=== PATIENT | female | born 1945 | race Caucasian/White ===

== ENCOUNTER → 2019-11-12 | Outpatient (REF) | payer MEDICARE ==
[2019-11-12 20:27] LABS: BASO # 0.1 10^3/uL (0.0-0.2); BASO % 0.6 % (0.0-1.0); EOS # 0.3 10^3/uL (0.0-0.5); EOS % 3.8 % (0.0-3.0); HEMATOCRIT 40.8 % (36.0-47.0); HEMOGLOBIN 13.1 g/dl (12.0-15.5); LYMPH # 2.1 10^3/uL (1.5-5.0); LYMPH % 26.3 % (24.0-44.0); MEAN CORPUSCULAR HEMOGLOBIN 28.4 pg (27.0-33.0); MEAN CORPUSCULAR HGB CONC 32.1 g/dl (32.0-36.5); MEAN CORPUSCULAR VOLUME 88.3 fl (80.0-96.0); MONO # 0.7 10^3/uL (0.0-0.8); MONO % 8.4 % (0.0-5.0); NEUTROPHILS # 4.9 10^3/uL (1.5-8.5); NEUTROPHILS % 60.7 % (36.0-66.0); PLATELET COUNT, AUTOMATED 282 10^3/uL (150-450); RED BLOOD COUNT 4.62 10^6/uL (4.00-5.40); WHITE BLOOD COUNT 8.1 10^3/uL (4.0-10.0)
[2019-11-12 20:33] LABS: BLOOD UREA NITROGEN 17 MG/DL (7-18); CALCIUM LEVEL 9.2 MG/DL (8.8-10.2); CARBON DIOXIDE LEVEL 32 MEQ/L (21-32); CHLORIDE LEVEL 103 MEQ/L (98-107); CHOLESTEROL LEVEL 161 MG/DL (<200); CHOLESTEROL RISK RATIO 3.659 (<5); CREATININE FOR GFR 0.94 MG/DL (0.55-1.30); GLOMERULAR FILTRATION RATE > 60.0 (>39); GLUCOSE, FASTING 60 MG/DL (70-100); HDL CHOLESTEROL 44 MG/DL (>40); LDL CHOLESTEROL 59 MG/DL (<100); NON-HDL-C 117 MG/DL; POTASSIUM SERUM 3.6 MEQ/L (3.5-5.1); SODIUM LEVEL 144 MEQ/L (136-145); TRIGLYCERIDES LEVEL 291 MG/DL (<150)
[2019-11-12 20:42] LABS: MALB URINE SIEMENS 10.3 MG/L
[2019-11-12 20:44] LABS: HEMOGLOBIN A1c 6.6 %
[2019-11-12 20:45] LABS: VITAMIN B12 LEVEL 305 PG/ML (247-911)
== END ==
LOC: M SFHCLERA 15:00
PROVIDERS: ATTEND Family Medicine
DX: E11.9 Type 2 diabetes mellitus without complications (principal); E78.5 Hyperlipidemia, unspecified

== ENCOUNTER 2019-12-03 12:35 | Inpatient (IN) | payer MEDICARE ==
[~2019-12-03] VITALS: Ht 162.6 cm; Wt 105.5 kg
[2019-12-03] MEDS ORDERED: KLOR20TA42 PO (12:47)
[2019-12-03] MEDS ORDERED: METF500T13 PO (12:47)
[2019-12-03] MEDS ORDERED: LISI20TA20 PO (12:47)
[2019-12-03] MEDS ORDERED: CALC600T66 PO (12:47)
[2019-12-03] MEDS ORDERED: SIMV10TA21 PO (12:47)
[2019-12-03] MEDS ORDERED: ALBU8.5H INH (12:47)
[2019-12-03 13:19] LABS: BASO % 0.2 % (0.0-1.0); EOS # 0.3 10^3/uL (0.0-0.5); HEMATOCRIT 40.6 % (36.0-47.0); LYMPH # 1.3 10^3/uL (1.5-5.0); LYMPH % 15.6 % (24.0-44.0); MEAN CORPUSCULAR HEMOGLOBIN 27.6 pg (27.0-33.0); MEAN CORPUSCULAR VOLUME 86.2 fl (80.0-96.0); MONO # 0.6 10^3/uL (0.0-0.8); MONO % 7.5 % (0.0-5.0); NEUTROPHILS % 72.5 % (36.0-66.0); PLATELET COUNT, AUTOMATED 216 10^3/uL (150-450); RED BLOOD COUNT 4.71 10^6/uL (4.00-5.40); WHITE BLOOD COUNT 8.2 10^3/uL (4.0-10.0)
[2019-12-03 13:48] LABS: INFLUENZA A AMPLIFICATION NEGATIVE (NEGATIVE); INFLUENZA B AMPLIFICATION NEGATIVE (NEGATIVE)
--- NOTE | 2019-12-03 13:48 | REP ---
Portable chest x-ray: Sitting AP view. History: Syncope/near syncope. Comparison chest x-ray: May 23, 2006. Findings: Monitoring electrodes are seen. There is an infiltrate in the left perihilar region consistent with upper lobe pneumonia. Remaining lung haley are clear. Pleural angles are sharp. Heart size is normal. Pulmonary vasculature is not increased. No significant bony abnormality. Impression: Left upper lobe infiltrate consistent with pneumonia. Electronically Signed by Kadeem Whitney MD 12/03/2019 01:40 P
[2019-12-03 14:06] LABS: CALCIUM LEVEL 9.6 MG/DL (8.8-10.2); CREATININE FOR GFR 1.41 MG/DL (0.55-1.30); POTASSIUM SERUM 3.5 MEQ/L (3.5-5.1); THYROID STIMULATING HORMONE 3.93 uIU/ML (0.358-3.740)
[2019-12-03] MEDS ORDERED: ISOVUE-370 76% 100ML VIAL (Q9967) As Ordered ONE (14:49)
[2019-12-03] MEDS ORDERED: cefTRIAXone SOD 2 GM in D5W MINI-BAG PLUS 50 ML IV ONE (15:45)
[2019-12-03] MEDS ORDERED: AZITHROMYCIN INJ 500 MG, VIAL MATE ADAPTER 1 EACH in D5W 250 ML IV ONE (15:45)
--- NOTE | 2019-12-03 15:52 | REP ---
CT pulmonary angiogram: With IV contrast. History: Syncope. Injury in a fall. Shortness of breath. Leg swelling. Rule out pulmonary embolus. Comparison studies: No comparison study Contrast dose: 75 mL of Isovue [address] technique: Helical scanning is acquired and overlapping 1.5 mm and contiguous 3 mm axial images are reformatted. In addition, maximum intensity projection and multiplanar re-formation images are generated in sagittal and coronal imaging projections. CT pulmonary angiographic findings: There is good opacification in the pulmonary arterial tree. There is no CT evidence of pulmonary embolus. The thoracic aorta enhances homogeneously. There is no evidence of aneurysm or dissection. Ascending aorta measures 3.3 cm in AP dimension at the level of the right main pulmonary artery. No pleural or pericardial effusion is seen. No adrenal lesion is seen. There is a ventral hernia in the epigastrium transmitting a portion of the stomach and transverse colon. The visualized upper abdominal structures are otherwise unremarkable. On lung window settings, there is an infiltrate in the left upper lobe consistent with pneumonia. No pulmonary mass or significant nodule is appreciated. There is some early patchy alveolar densities in the left lower lobe. No bony destructive lesion is appreciated. Impression: No CT evidence of pulmonary embolism. Left upper lobe pneumonia. Epigastric ventral hernia transmits a portion of stomach and transverse colon. No other acute abnormality. Electronically Signed by Kadeem Whitney MD 12/03/2019 05:10 P
[2019-12-03] MEDS ORDERED: NS 1,000 ML IV ONE (16:15)
--- NOTE | 2019-12-03 17:13 | REP ---
CT brain without contrast: History: Syncope. Fall. No comparison study. Findings: Preliminary digital contact lens edge buffer radiograph is unremarkable. Bony calvarium is intact. Visualized paranasal sinuses are clear. There is vascular calcification in the distal carotid arteries bilaterally. No intraorbital abnormality is seen. On soft tissue window settings, the lateral, third, and fourth ventricles are normal in size and position. Mccall-white differentiation pattern is normal above and below the tentorium. There is no evidence of intracranial hemorrhage. No mass, infarct, extra-axial fluid collection, or midline shift is seen Impression: Mild vascular calcification. Otherwise negative. No acute intracranial abnormality. Electronically Signed by Kadeem Whitney MD 12/03/2019 05:35 P
[2019-12-03] MEDS ORDERED: GLUCAGON FOR INJ 1 MG VIAL (J1610) SC PRN (17:15)
[2019-12-03] MEDS ORDERED: GLUCOSE 4 GM CHEW TABLET PO PRN (17:15)
[2019-12-03] MEDS ORDERED: MOM 30ML SUSPENSION UDC PO PRN (17:15)
[2019-12-03] MEDS ORDERED: MAALOX 30 ML SUSP *UDC PO PRN (17:15)
[2019-12-03] MEDS ORDERED: DEXTROSE 50% 50 ML SYRINGE IV PRN (17:15)
--- NOTE | 2019-12-03 17:15 | REP ---
CT study of the cervical spine without contrast: History: Syncope. Injury in a fall. Technique: Helical scanning is acquired and overlapping 2 mm high resolution axial images were generated and reviewed at bone and soft tissue window settings. Coronal and sagittal multiplanar re-formations images are generated. CT findings: There is no evidence of cervical spine element fracture. No skull base fracture is seen. Cervical vertebral body heights are preserved. Alignment is normal. Facet joints are normally aligned bilaterally at each cervical level on multiplanar re-formations images. There is no evidence of intraspinal or paraspinal hematoma. No extra vertebral abnormality is seen. There are degenerative spondylosis changes including facet arthropathy bilaterally in the mid cervical spine. There is C1-C2 osteoarthritis at the tip of the dens. The left facet joint at C6-7 is ankylosed. There is a mild dextroconvex curvature on the coronal multiplanar reformation images. Impression: Degenerative spondylosis changes. Otherwise negative CT study of the cervical spine without contrast. No fracture seen. Electronically Signed by Kadeem Whitney MD 12/03/2019 05:35 P
[2019-12-03] MEDS ORDERED: HM P99TA PO (17:28)
--- NOTE | 2019-12-03 17:28 | HPEPDOC ---
General Date of Admission 12/03/19 Date of Service: Dec 03, 2019 Chief Complaint The patient is a 74-year-old female admitted with a reason for visit of Syncope. Source: Patient, Family, RN/, Old records History of Present Illness 74 year old female came to the ED because she passed out at the grocery store. The patient recently moved up here from [place]. She has been battling apost nasal drip for the past 2 weeks associated with some nasal congestion and runny nose. She also has been feeling weak and tired. A week ago she had a presyncopal episode at [facility] but did not pass out. She felt weak and sat down thought that her sugar was low so had some candies then felt a little better and was able to go home. Last 4 days she has been feeling very sick with severe croupy cough which was bothering her sleep and was worse when she lay down so slept in recliner, she was having SOb and wheezing and was bringing up yellowish greenish phlegm. 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 Ambulance was called but she did not want to come in an ambulance. Her daughter was there and brought her to the ED. Work up in the ED with CXR and CT angio of the chest was done. Negative for PE but showed a left upper lobe pneumonia. CT head was negative and CT cervical spine was negative. She was admitted for Pneumonia and syncope. Home Medications Scheduled Calcium Carbonate/Vitamin D3 (Calcium 600 + Vit D Tablet) 1 Each Tablet, 1 EACH PO DAILY, (Reported) Fluticasone Propion/Salmeterol (Wixela 100-50 Inhub) 1 Each Blst.w.dev, 1 PUFF INH BID, (Reported) Lisinopril/Hydrochlorothiazide (Lisinopril-Hctz 20-25 mg Tab) 1 Each Tablet, 1 TAB PO DAILY, (Reported) Metformin HCl (Metformin HCl) 500 Mg Tablet, 1,000 MG PO DAILY, (Reported) Metoprolol Tartrate (Metoprolol Tartrate) 50 Mg Tablet, 50 MG PO BID, (Reported) Potassium Gluconate (Potassium) 99 Mg Tablet, 99 MG PO BID, (Reported) Simvastatin (Simvastatin) 20 Mg Tablet, 20 MG PO QHS, (Reported) Scheduled PRN Albuterol Sulfate (Albuterol Sulfate Hfa) 8.5 Gm Hfa.aer.ad, 1 PUFF INH Q4H PRN for SHORTNESS OF BREATH, (Reported) Ibuprofen (Advil) 200 Mg Capsule, 400 MG PO QID PRN for PAIN / FEVER, (Reported) Loratadine (Allergy Relief) 10 Mg Tablet, 10 MG PO DAILY PRN for ALLERGIES, (Reported) Melatonin (Melatonin) 3 Mg Tab.rapdis, 6 MG PO QHS PRN for SLEEP, (Reported) Allergies Coded Allergies: ciprofloxacin (Verified Allergy, Unknown, hives, 12/03/19) Past Medical History Medical History ASTHMA TYPE 2 DIABETES, GOAL A1C 7% HYPERLIPIDEMIA HTN, VARICOSE VEINS LEG CRAMPS Surgical History APPENDECTOMY TOTAL HYSTERECTOMY CHOLECYSTECTOMY LUMP REMOVED ON NECK IN CHILDHOOD Family History FATHER: MOTHER: FATHER COLON CANCER, MOTHER CARDIAC PROBLEMS AND IBS. SISTER CARDIAC PROBLEMS 2018. Social History * Smoker: former Smoker Alcohol: Denies Drugs: denies A-FIB/CHADSVASC A-FIB History Current/History of A-Fib/PAF?: No Review of Systems Constitutional: Reports: Weakness, Fatigue; Denies: Chills, Fever, Night Sweats Eyes: Denies: Pain, Vision change ENT: Reports: Sinus Congestion, Post Nasal Drip Skin: Denies: Rash, Lesions, Breakdown Pulmonary: Reports: Dyspnea, Cough Cardiovascular: Reports: Lt Headedness; Denies: Chest Pain, Palpitations, Orthopnea, Paroxysmal Noc. Dyspnea Gastrointestinal: Denies: Nausea, Vomiting, Abdominal Pain, Diarrhea Genitourinary: Denies: Dysuria, Frequency, Incontinence, Retention Musculoskeletal: Reports: Leg Pain, Muscle Pain; Denies: Neck Pain, Back Pain, Joint Pain, Spasms Neurological: Denies: Weakness, Numbness, Change in speech, Confusion Psych: Reports: Mood Normal; Denies: Depression, Memory Issues Physical Examination General Exam: Positive: Alert, Cooperative, No Acute Distress, Other (small laceration at theback of the head.) Eye Exam: Positive: PERRLA, Conjunctiva & lids normal, EOMI; Negative: Sclera icteric ENT Exam: Positive: Atraumatic, Mucous membr. moist/pink, Pharynx Normal Neck Exam: Positive: Supple; Negative: JVD, thyromegaly Chest Exam: Positive: Rhonchi, Wheezing Heart Exam: Positive: Rate Normal, Regular Rhythm, Normal S1, Normal S2; Negative: Murmurs, Rubs Abdomen Exam: Positive: Normal bowel sounds, Soft; Negative: Tenderness, Hepatospenomegaly Extremity Exam: Positive: Other (bilateral varicose veins); Negative: Clubbing, Cyanosis, Edema Skin Exam: Positive: Nl turgor and temperature; Negative: Breakdown, Lesion Neuro Exam: Positive: Normal Gait, Normal Speech, Cranial Nerves 3-12 NL, Reflexes 2+ Psych Exam: Positive: Mental status NL, Mood NL, Oriented x 3 Vital Signs Vital Signs Date Time Temp Pulse Resp B/P (MAP) Pulse Ox O2 Delivery O2 Flow Rate FiO2 12/03/19 16:01 85 97 12/03/19 16:00 139/63 (88) 12/03/19 13:02 96.8 12/03/19 12:35 20 Room Air Laboratory Data Labs 24H Laboratory Tests 2 12/03/19 13:04: Immature Granulocyte % (Auto) 0.2, Neutrophils (%) (Auto) 72.5H, Lymphocytes (%) (Auto) 15.6L, Monocytes (%) (Auto) 7.5H, Eosinophils (%) (Auto) 4.0H, Basophils (%) (Auto) 0.2, Neutrophils # (Auto) 6.0, Lymphocytes # (Auto) 1.3L, Monocytes # (Auto) 0.6, Eosinophils # (Auto) 0.3, Basophils # (Auto) 0.0, Nucleated Red Blood Cells % (auto) 0.0, Anion Gap 8, Glomerular Filtration Rate 39.0, Calcium Level 9.6, Thyroid Stimulating Hormone (TSH) 3.930H, Influenza Type A (RT-PCR) NEGATIVE, Influenza Type B (RT-PCR) NEGATIVE 12/03/19 13:09: Bedside Glucose (Misc Panel) 225H CBC/BMP Laboratory Tests 12/03/19 13:04 Microbiology Microbiology 12/03/19 Blood Culture, Received Pending 12/03/19 Blood Culture, Received Pending Assessment/Plan 74 year old female came to the ED because she passed out at the grocery store. The patient recently moved up here from [place]. She has been battling apost nasal drip for the past 2 weeks associated with some nasal congestion and runny nose. She also has been feeling weak and tired. A week ago she had a presyncopal episode at [facility] but did not pass out. She felt weak and sat down thought that her sugar was low so had some candies then felt a little better and was able to go home. Last 4 days she has been feeling very sick with severe croupy cough which was bothering her sleep and was worse when she lay down so slept in recliner, she was having SOb and wheezing and was bringing up yellowish greenish phlegm. 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 Ambulance was called but she did not want to come in an ambulance. Her daughter was there and brought her to the ED. Work up in the ED with CXR and CT angio of the chest was done. Negative for PE but showed a left upper lobe pneumonia. CT head was negative and CT cervical spine was negative. She was admitted for Pneumonia and syncope. Left upper lobe Pneumonia ceftriaxone and azithromycin sputum culture, urine legionella, urine strp antigen blood cultures. Syncope probably vasovagal with possibly mild dehydration possibly due to due to pneumonia with diuretics will monitor on telemetry for 24 hours to rule out any cardiac arrhythmias will hold HCTZ and lisinopril continue metoprolol Dory WIll hold HCTZ and lisinopril Hypertension BP well controlled will hold lisinopril and HCTZ for now due to Dory continue metoprolol. will give amlodipine if needed. Asthma may be having mild exacerbation due to pneumonia will give albuterol and budesonide and formoterol nebs loratidine Diabetes hold metformin lispro sliding scale hyperlipidemia stain Leg cramps continue potassium Plan / VTE VTE Prophylaxis Ordered?: Yes JIAN LYNN MD Dec 03, 2019 16:59
[2019-12-03] MEDS: HumaLOG INSULIN (NovoLOG) PER UNIT SC SCH ×2 (17:30→20:57)
[2019-12-03] MEDS ORDERED: MELA3TAB49 PO (17:51)
[2019-12-03] MEDS ORDERED: ADVI200C8 PO (17:51)
[2019-12-03] MEDS ORDERED: METO50TA7 PO (17:51)
[2019-12-03] MEDS ORDERED: SIMV20TA22 PO (17:51)
[2019-12-03] MEDS ORDERED: FLUT1BLS INH (17:51)
[2019-12-03] MEDS ORDERED: [UNRECOGNIZED DRUG - CODE] PO (17:51)
[2019-12-03] MEDS ORDERED: LORATADINE 10 MG TAB PO PRN (18:45)
[2019-12-03] MEDS: FORMOTEROL FUMARATE 20 MCG/2 ML INHALATION SOLUTION (PERFOROMIST) INH SCH (19:19)
[2019-12-03] MEDS: ALBUTEROL SULFATE 2.5 MG/0.5 ML INH NEB SOLN NEB SCH (19:19)
[2019-12-03] MEDS: BUDESONIDE 0.5 MG/2 ML INHALATION SUSPENSION INH SCH (19:23)
[2019-12-03 20:15] VITALS: BP 170/80
[2019-12-03] MEDS: DOCUSATE SODIUM 100 MG CAP PO SCH (21:06)
[2019-12-03] MEDS: POTASSIUM CHLORIDE 10 MEQ SR TABLET PO SCH (21:06)
[2019-12-03] MEDS: SIMVASTATIN 20 MG TAB PO SCH (21:06)
[2019-12-03] MEDS: METOPROLOL TART 50 MG TAB PO SCH (21:07)
[2019-12-04] VITALS (8 sets, daily range): BP systolic 122–183; BP diastolic 60–83
[2019-12-04] MEDS: ALBUTEROL SULFATE 2.5 MG/0.5 ML INH NEB SOLN NEB SCH ×4 (03:28→20:00)
--- NOTE | 2019-12-04 06:53 | ECGEPIP ---
[facility] - ED Test Date: 2019-12-03 Pat Name: NABEEL RUIZ Department: Room: - Gender: Female Battery Service Technician: : 1945 Requested By: LEE Singletary Order Number: [id number] Reading MD: Heron Lopez Measurements Intervals [place] Rate: 87 P: 61 CA: 142 QRS: 7 QRSD: 88 T: 49 QT: 358 QTc: 431 Interpretive Statements SINUS RHYTHM POOR R WAVE PROGRESSION NO PRIORS FOR COMPARISON Electronically Signed on 12-04-2019 6:53:42 EST by Heron Lopez
[2019-12-04] MEDS: HumaLOG INSULIN (NovoLOG) PER UNIT SC SCH ×4 (07:30→21:00)
[2019-12-04] MEDS: HEPARIN SOD (PORCINE) 5000 UNITS/ML VIAL (J1644 PER 1000UNITS) SC SCH ×2 (09:29→20:42)
[2019-12-04] MEDS: METOPROLOL TART 50 MG TAB PO SCH ×2 (09:30→20:41)
[2019-12-04] MEDS: AZITHROMYCIN 250 MG TAB PO SCH (09:30)
[2019-12-04] MEDS: DOCUSATE SODIUM 100 MG CAP PO SCH ×2 (09:30→20:42)
[2019-12-04] MEDS: POTASSIUM CHLORIDE 10 MEQ SR TABLET PO SCH ×2 (09:30→20:42)
--- NOTE | 2019-12-04 10:25 | IPNPDOC ---
Subjective Date Seen The patient was seen on 12/04/19. Subjective Chief Complaint/HPI Patient is comfortable offers no new complaints at the present time General: Denies: ROS Unobtainable, Chills, Night Sweats, Fatigue, Malaise, Normal Appetite, Other Symptoms Constitutional: Denies: Chills, Fever, Malaise, Night Sweats, Weakness, Fatigue, Weight Loss, Lethargy, Other Pulmonary: Denies: Dyspnea, Cough, Pleuritic Chest Pain, Other Symptoms Cardiovascular: Denies: Chest Pain, Palpitations, Orthopnea, Paroxysmal Noc. Dyspnea, Edema, Lt Headedness, Other Symptoms Gastrointestinal: Denies: Nausea, Vomiting, Abdominal Pain, Diarrhea, Constipation, Melena, Hematochezia, Other Symptoms Musculoskeletal: Denies: Neck Pain, Back Pain, Shoulder Pain, Arm Pain, Hand Pain, Leg Pain, Foot Pain, Joint Pain, Muscle Pain, Spasms, Other Symptoms Neurological: Denies: Weakness, Numbness, Incoordination, Change in speech, Confusion, Seizures, Other Symptoms Objective Physical Examination ENT Exam: Positive: Atraumatic, Mucous membr. moist/pink, Pharynx Normal Neck Exam: Positive: Supple; Negative: JVD, thyromegaly Chest Exam: Positive: Other (bilateral rhonchi is audible) Heart Exam: Positive: Rate Normal, Regular Rhythm, Normal S1, Normal S2; Negative: Murmurs, Rubs Abdomen Exam: Positive: Normal bowel sounds, Soft; Negative: Tenderness, Hepatospenomegaly Extremity Exam: Positive: Other (bilateral varicose veins); Negative: Clubbing, Cyanosis, Edema Skin Exam: Positive: Nl turgor and temperature; Negative: Breakdown, Lesion Neuro Exam: Positive: Normal Gait, Normal Speech, Cranial Nerves 3-12 NL, Reflexes 2+ Assessment /Plan Problems (1) Pneumonia Status: Acute Problem Text: 74 year old female came to the ED because she passed out at the grocery store. The patient recently moved up here from [place]. She has been battling apost nasal drip for the past 2 weeks associated with some nasal congestion and runny nose. She also has been feeling weak and tired. A week ago she had a presyncopal episode at [facility] but did not pass out. She felt weak and sat down thought that her sugar was low so had some candies then felt a little better and was able to go home. Last 4 days she has been feeling very sick with severe croupy cough which was bothering her sleep and was worse when she lay down so slept in recliner, she was having SOb and wheezing and was bringing up y ellowish greenish phlegm. 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 Ambulance was called but she did not want to come in an ambulance. Her daughter was there and brought her to the ED. Work up in the ED with CXR and CT angio of the chest was done. Negative for PE but showed a left upper lobe pneumonia. CT head was negative and CT cervical spine was negative. She was admitted for Pneumonia and syncope. Continue ceftriaxone and Zithromax Sputum cultures and urine Legionella pending A.m. labs Possible discharge in a.m. (2) Syncope Status: Acute Problem Text: probably vasovagal with possibly mild dehydration possibly due to due to pneumonia with diuretics will monitor on telemetry for 24 hours to rule out any cardiac arrhythmias will hold HCTZ and lisinopril continue metoprolol (3) HTN (hypertension) Status: Chronic Problem Text: Continue home meds (4) SALOME (acute kidney injury) Problem Text: Continue holding hydrochlorothiazide and lisinopril A.m. labs (5) Asthma exacerbation Status: Acute Problem Text: may be having mild exacerbation due to pneumonia will give albuterol and budesonide and formoterol nebs loratidine Plan/VTE VTE Prophylaxis Ordered?: Yes VS, I&O, 24H, [facility] Vital Signs/I&O Vital Signs Date Time Temp Pulse Resp B/P (MAP) Pulse Ox O2 Delivery O2 Flow Rate FiO2 12/04/19 09:30 81 122/60 12/04/19 08:00 98.0 21 93 Room Air I&O- Last 24 Hours up to 6 AM 12/04/19 06:00 Intake Total 1545 ml Output Total 1100 ml Balance 445 ml Laboratory Data 24H LABS Laboratory Tests 2 12/03/19 13:04: Immature Granulocyte % (Auto) 0.2, Neutrophils (%) (Auto) 72.5H, Lymphocytes (%) (Auto) 15.6L, Monocytes (%) (Auto) 7.5H, Eosinophils (%) (Auto) 4.0H, Basophils (%) (Auto) 0.2, Neutrophils # (Auto) 6.0, Lymphocytes # (Auto) 1.3L, Monocytes # (Auto) 0.6, Eosinophils # (Auto) 0.3, Basophils # (Auto) 0.0, Nucleated Red Blood Cells % (auto) 0.0, Anion Gap 8, Glomerular Filtration Rate 39.0, Calcium Level 9.6, Thyroid Stimulating Hormone (TSH) 3.930H, Influenza Type A (RT-PCR) NEGATIVE, Influenza Type B (RT-PCR) NEGATIVE 12/03/19 13:09: Bedside Glucose (Misc Panel) 225H 12/03/19 20:23: Bedside Glucose (Misc Panel) 235H CBC/BMP Laboratory Tests 12/03/19 13:04 Microbiology Microbiology 12/03/19 Blood Culture, Received Pending 12/03/19 Blood Culture, Received Pending MARIAN SWEENEY MD Dec 04, 2019 10:25
[2019-12-04] MEDS: FORMOTEROL FUMARATE 20 MCG/2 ML INHALATION SOLUTION (PERFOROMIST) INH SCH ×2 (11:46→20:52)
[2019-12-04] MEDS: BUDESONIDE 0.5 MG/2 ML INHALATION SUSPENSION INH SCH ×2 (11:46→20:52)
[2019-12-04] MEDS ORDERED: cefTRIAXone SOD 2 GM in D5W MINI-BAG PLUS 50 ML IV SCH (16:00)
[2019-12-04] MEDS: SIMVASTATIN 20 MG TAB PO SCH (20:42)
[2019-12-05] MEDS: ALBUTEROL SULFATE 2.5 MG/0.5 ML INH NEB SOLN NEB SCH ×3 (01:45→13:23)
[2019-12-05 06:00] VITALS: BP 148/64
[2019-12-05 06:42] LABS: HEMATOCRIT 34.8 % (36.0-47.0); HEMOGLOBIN 11.1 g/dl (12.0-15.5); MEAN CORPUSCULAR HEMOGLOBIN 27.8 pg (27.0-33.0); MEAN CORPUSCULAR HGB CONC 31.9 g/dl (32.0-36.5); MEAN CORPUSCULAR VOLUME 87.2 fl (80.0-96.0); PLATELET COUNT, AUTOMATED 191 10^3/uL (150-450); RED BLOOD COUNT 3.99 10^6/uL (4.00-5.40); WHITE BLOOD COUNT 4.9 10^3/uL (4.0-10.0)
[2019-12-05 07:06] LABS: ALBUMIN 2.9 GM/DL (3.2-5.2); ALT/SGPT 13 U/L (12-78); BILIRUBIN,TOTAL 0.2 MG/DL (0.2-1.0); BLOOD UREA NITROGEN 16 MG/DL (7-18); CALCIUM LEVEL 8.5 MG/DL (8.8-10.2); CARBON DIOXIDE LEVEL 31 MEQ/L (21-32); CHLORIDE LEVEL 107 MEQ/L (98-107); CREATININE FOR GFR 0.91 MG/DL (0.55-1.30); GLOMERULAR FILTRATION RATE > 60.0 (>39); GLUCOSE, FASTING 158 MG/DL (70-100); POTASSIUM SERUM 3.3 MEQ/L (3.5-5.1); SODIUM LEVEL 142 MEQ/L (136-145); TOTAL PROTEIN 6.4 GM/DL (6.4-8.2)
[2019-12-05 07:13] LABS: ATYPICAL LYMPH 1 % (0-5); EOSINOPHILS 11 % (0-3); LYMPHOCYTES 34 % (16-44); MONOCYTES 4 % (0-5); NEUTROPHILS 50 % (28-66)
[2019-12-05 07:14] LABS: PLATELET ESTIMATE NORMAL (NORMAL)
[2019-12-05] MEDS: FORMOTEROL FUMARATE 20 MCG/2 ML INHALATION SOLUTION (PERFOROMIST) INH SCH (07:35)
[2019-12-05] MEDS: BUDESONIDE 0.5 MG/2 ML INHALATION SUSPENSION INH SCH (07:35)
[2019-12-05] MEDS: DOCUSATE SODIUM 100 MG CAP PO SCH (08:20)
[2019-12-05] MEDS: HumaLOG INSULIN (NovoLOG) PER UNIT SC SCH ×2 (08:20→12:08)
[2019-12-05] MEDS: POTASSIUM CHLORIDE 10 MEQ SR TABLET PO SCH (08:21)
[2019-12-05] MEDS: AZITHROMYCIN 250 MG TAB PO SCH (08:21)
[2019-12-05] MEDS: HEPARIN SOD (PORCINE) 5000 UNITS/ML VIAL (J1644 PER 1000UNITS) SC SCH (08:21)
[2019-12-05 08:22] VITALS: BP 148/64
[2019-12-05] MEDS: METOPROLOL TART 50 MG TAB PO SCH (08:22)
[2019-12-05] MEDS ORDERED: POTASSIUM CHLORIDE 10 MEQ SR TABLET PO SCH (09:00)
[2019-12-05] MEDS ORDERED: CEFP200T PO (09:26)
[2019-12-05] MEDS ORDERED: AZIT-12 PO (09:26)
[2019-12-05] MEDS ORDERED: LEVO25TA5 PO (09:26)
[2019-12-05] MEDS ORDERED: LEVOTHYROXINE 12.5MCG PER 1/2 TAB (0.0125MG) PO SCH (09:42)
--- NOTE | 2019-12-05 10:43 | DS.PDOC ---
Discharge Summary General Date of Admission Dec 03, 2019 at 17:08 Date of Discharge 12/05/19 Discharge Summary PROCEDURES PERFORMED DURING STAY: None. ADMITTING DIAGNOSES: 1. Syncope ,right upper lobe pneumonia. DISCHARGE DIAGNOSES: 1. Syncope, right upper lobe pneumonia. COMPLICATIONS/CHIEF COMPLAINT: Syncope,Pneumonia. HISTORY OF PRESENT ILLNESS: 74 year old female came to the ED because she passed out at the grocery store. The patient recently moved up here from [place]. She has been battling apost nasal drip for the past 2 weeks associated with some nasal congestion and runny nose. She also has been feeling weak and tired. A week ago she had a presyncopal episode at [facility] but did not pass out. She felt weak and sat down thought that her sugar was low so had some candies then felt a little better and was able to go home. Last 4 days she has been feeling very sick with severe croupy cough which was bothering her sleep and was worse when she lay down so slept in recliner, she was having SOb and wheezing and was bringing up yellowish greenish phlegm. Today she was at [employer] and was at the [employer] putting in her card when she felt weak and dizzy and passed out and fell back wards and hit her head at the back. Ambulance was called but she did not want to come in an ambulance. Her daughter was there and brought her to the ED.. HOSPITAL COURSE: [ (1) Pneumonia 74 year old female cme to the ED because she passed out at the grocery store. The patient recently moved up here from [place]. She has been battling apost nasal drip for the past 2 weeks associated with some nasal congestion and runny nose. She also has been feeling weak and tired. A week ago she had a presyncopal episode at [place] but did not pass out. She felt weak and sat down thought that her sugar was low so had some candies then felt a little better and was able to go home. Last 4 days she has been feeling very sick with severe croupy cough which was bothering her sleep and was worse when she lay down so slept in recliner, she was having SOb and wheezing and was bringing up yellowish greenish phlegm. Today she was at [employer] and was at the [employer] putting in her card when she felt weak and dizzy and passed out and fell back wards and hit her head at the back. Ambulance was called but she did not want to come in an ambulance. Her daughter was there and brought her to the ED. Work up in the ED with CXR and CT angio of the chest was done. Negative for PE but showed a left upper lobe pneumonia. CT head was negative and CT cervical spine was negative. She was admitted for Pneumonia and syncope. Patient was started on ceftriaxone and Zithromax, which she responded very well Patient is clinically stable. WBC count is within normal range, asymptomatic, afebrile can be discharged home on by mouth antibiotics Patient will follow with her PCP in one week (2) Syncope probably vasovagal with possibly mild dehydration possibly due to due to pneumonia with diuretics Patient on monitored on telemetry without any evidence of any arrhythmias ill restart all her home meds including metoprolol (3) HTN (hypertension) Continue home meds (4) SALOME (acute kidney injury) Continue holding hydrochlorothiazide and lisinopril (5) exacerbation of asthma may be having mild exacerbation due to pneumonia Patient received albuterol and budesonide and formoterol nebs with good results DISCHARGE MEDICATIONS: Please see below. ALLERGIES: Please see below. PHYSICAL EXAMINATION ON DISCHARGE: VITAL SIGNS: Please see below. GENERAL: Within normal limits HEENT: Lynn extraocular muscles intact NECK: Supple. Negative JVD. Lymph nodes CARDIOVASCULAR EXAMINATION: S1, S2, regular RESPIRATORY EXAMINATION: Clear to A&P ABDOMINAL EXAMINATION: , Soft, nontender. Pulses present EXTREMITIES: No clubbing, cyanosis, edema SKIN: Normal NEUROLOGICAL EXAMINATION: . No focal motor sensory deficit PSYCHIATRIC EXAMINATION: Normal LABORATORY DATA: Please see below. IMAGING: CT of chest: No PE, Chest x-ray: Impression: Left upper lobe infiltrate consistent with pneumonia. PROGNOSIS: Good ACTIVITY: As tolerated. DIET: As tolerated DISCHARGE PLAN: Follow with PCP in one week DISPOSITION: . Home DISCHARGE INSTRUCTIONS: 1. As per discharge instructions. ITEMS TO FOLLOWUP ON ON OUTPATIENT: 1. As per discharge instructions. DISCHARGE CONDITION: Stable. TIME SPENT ON DISCHARGE: 35 minutes. Vital Signs/I&Os Vital Signs Date Time Temp Pulse Resp B/P (MAP) Pulse Ox O2 Delivery O2 Flow Rate FiO2 12/05/19 08:22 74 148/64 12/05/19 06:00 97.9 18 96 12/04/19 22:10 Room Air I&O- Last 24 Hours up to 6 AM 12/05/19 06:00 Intake Total 1050 ml Output Total 1825 ml Balance -775 ml Laboratory Data Labs 24H Laboratory Tests 2 12/04/19 11:48: Bedside Glucose (Misc Panel) 208H 12/04/19 20:16: Bedside Glucose (Misc Panel) 202H 12/05/19 06:03: Neutrophils (%) (Auto) , Nucleated Red Blood Cells % (auto) 0.0, Neutrophils 50, Lymphocytes (Manual) 34, Monocytes (Manual) 4, Eosinophils (Manual) 11H, Atypical Lymphocytes 1, Red Blood Cell Morphology NORMAL, Platelet Estimate NORMAL, Anion Gap 4L, Glomerular Filtration Rate > 60.0, Calcium Level 8.5L, Total Bilirubin 0.2, Aspartate Amino Transf (AST/SGOT) 8, Alanine Aminotransferase (ALT/SGPT) 13, Alkaline Phosphatase 72, Total Protein 6.4, Albumin 2.9L, Albumin/Globulin Ratio 0.83L CBC/BMP Laboratory Tests 12/05/19 06:03 FSBS Laboratory Tests Test 12/04/19 11:48 12/04/19 20:16 Range/Units Bedside Glucose (Misc Panel) 208 202 83-110 MG/DL Microbiology Microbiology 12/03/19 Blood Culture - Preliminary, Resulted No growth after 24 hours . All specim... 12/03/19 Blood Culture - Preliminary, Resulted No growth after 24 hours . All specim... Discharge Medications Scheduled Azithromycin (Azithromycin) 250 Mg Tablet, 500 MG PO DAILY Calcium Carbonate/Vitamin D3 (Calcium 600 + Vit D Tablet) 1 Each Tablet, 1 EACH PO DAILY, (Reported) Cefpodoxime Proxetil (Cefpodoxime Proxetil) 200 Mg Tablet, 200 MG PO BID Fluticasone Propion/Salmeterol (Wixela 100-50 Inhub) 1 Each Blst.w.dev, 1 PUFF INH BID, (Reported) Levothyroxine Sodium (Levothyroxine Sodium) 25 Mcg Tablet, 12.5 MCG PO DAILY@06 Lisinopril/Hydrochlorothiazide (Lisinopril-Hctz 20-25 mg Tab) 1 Each Tablet, 1 TAB PO DAILY, (Reported) Metformin HCl (Metformin HCl) 500 Mg Tablet, 1,000 MG PO DAILY, (Reported) Metoprolol Tartrate (Metoprolol Tartrate) 50 Mg Tablet, 50 MG PO BID, (Reported) Potassium Gluconate (Potassium) 99 Mg Tablet, 99 MG PO BID, (Reported) Simvastatin (Simvastatin) 20 Mg Tablet, 20 MG PO QHS, (Reported) Scheduled PRN Albuterol Sulfate (Albuterol Sulfate Hfa) 8.5 Gm Hfa.aer.ad, 1 PUFF INH Q4H PRN for SHORTNESS OF BREATH, (Reported) Ibuprofen (Advil) 200 Mg Capsule, 400 MG PO QID PRN for PAIN / FEVER, (Reported) Loratadine (Allergy Relief) 10 Mg Tablet, 10 MG PO DAILY PRN for ALLERGIES, (Reported) Melatonin (Melatonin) 3 Mg Tab.rapdis, 6 MG PO QHS PRN for SLEEP, (Reported) Allergies Coded Allergies: ciprofloxacin (Verified Allergy, Unknown, hives, 12/03/19) MARIAN SWEENEY MD Dec 05, 2019 10:43
== END 2019-12-05 14:08 | disposition home or self-care (01) | DRG 194 ==
LOC: M ED 12:35 → M ED INP 17:08 → CANRESERV 17:25 → ENRESERV 17:25 → ENRESERVTM 19:20 → ENRESERVDT 19:20 → M PCU 20:15 → M MSPAV 12-04 22:07
PROVIDERS: ADMIT Internal Medicine Nephrology; ATTEND Internal Medicine
DX: J18.9 Pneumonia, unspecified organism (principal); N17.9 Acute kidney failure, unspecified; J45.901 Unspecified asthma with (acute) exacerbation; I10 Essential (primary) hypertension; E11.9 Type 2 diabetes mellitus without complications; Z79.899 Other long term (current) drug therapy; Z88.8 Allergy status to other drugs, medicaments and biological substances; E78.5 Hyperlipidemia, unspecified; I83.90 Asymptomatic varicose veins of unspecified lower extremity

== ENCOUNTER → 2020-03-10 | Outpatient (CLI) | payer MEDICARE ==
[~2020-03-10] MED LIST: ADVI200C8 PO; ALBU8.5H INH; AZIT-12 PO; CALC600T66 PO; CEFP200T PO; FLUT1BLS INH; HM P99TA PO; KLOR20TA42 PO; LEVO25TA5 PO; LISI20TA20 PO; MELA3TAB49 PO; METF500T13 PO; METO50TA7 PO; SIMV10TA21 PO; SIMV20TA22 PO; [UNRECOGNIZED DRUG - CODE] PO
--- NOTE | 2020-03-19 09:53 | REP ---
CT ABDOMEN AND PELVIS WITHOUT IV OR ORAL CONTRAST: HISTORY: Abdominal hernia without obstruction. The study is acquired on March 10, 2020 and is presented to me for interpretation on March 19, 2020. The reason for the delay is not known to me. No comparison abdominal CT study. FINDINGS: Digital preliminary vending machine attendant radiograph shows a normal bowel gas pattern. The lung bases are clear on axial CT images. The liver and the spleen are normal in size homogeneous in texture. No pleural effusion is seen. No upper abdominal ascites is noted. The kidneys are morphologically intact. There is a small parapelvic cyst in the lower pole on the left, 1.4 cm in diameter. Vascular calcification is seen in a normal caliber aorta. Small bowel loops are normal in the abdomen. There is carlisle colonic diverticulosis without CT evidence of diverticulitis. Diverticulosis is most pronounced in the sigmoid colon. Urinary bladder is unremarkable. Uterus is surgically absent. No adnexal pathology is appreciated. In the periumbilical region, there is a defect in the anterior abdominal wall measuring 2.4 cm in craniocaudal span x 2.4 cm in right to left dimension. This transmits a lobule of omental fat. In the epigastric region there is a larger complex defect in the anterior abdominal wall transmitting a loop of transverse colon and some adjacent pericolonic fat. The abdominal wall defect is larger measuring 10.7 cm in right to left span x 7.9 cm in craniocaudal span. There is no evidence of bowel obstruction. No other abdominal wall defect is seen. No bony destructive lesion seen. IMPRESSION: There are two ventral hernias, a large epigastric ventral hernia just to the right of midline and a periumbilical hernia. The larger hernia transmits a portion of transverse colon without evidence of obstruction. There is carlisle colonic diverticulosis. Vascular calcification. Electronically Signed by Kadeem Whitney MD 03/19/2020 12:46 P
== END ==
LOC: M RAD 11:09
PROVIDERS: ATTEND Family Medicine
DX: K43.9 Ventral hernia without obstruction or gangrene (principal); N28.1 Cyst of kidney, acquired; K57.30 Diverticulosis of large intestine without perforation or abscess without bleeding; K42.9 Umbilical hernia without obstruction or gangrene

== ENCOUNTER → 2020-08-05 | Outpatient (CLI) | payer MEDICARE ==
[~2020-08-05] MED LIST changes: +ALLE10TA28 PO; -[UNRECOGNIZED DRUG - CODE] PO
[2020-08-05 13:18] LABS: HEMATOCRIT 42.4 % (36.0-47.0); HEMOGLOBIN 13.1 g/dl (12.0-15.5); MEAN CORPUSCULAR HEMOGLOBIN 27.2 pg (27.0-33.0); MEAN CORPUSCULAR HGB CONC 30.9 g/dl (32.0-36.5); MEAN CORPUSCULAR VOLUME 88.1 fl (80.0-96.0); PLATELET COUNT, AUTOMATED 242 10^3/uL (150-450); RED BLOOD COUNT 4.81 10^6/uL (4.00-5.40); WHITE BLOOD COUNT 8.1 10^3/uL (4.0-10.0)
[2020-08-05 13:37] LABS: HEMOGLOBIN A1c 8.8 %
[2020-08-05 13:55] LABS: CREATININE, URINE 48.2 MG/DL; MALB URINE SIEMENS < 5.0 MG/L; MAU/CREAT RATIO 10.3 MCG/MG (0.0-30.0)
[2020-08-05 13:56] LABS: ALBUMIN 3.8 GM/DL (3.2-5.2); ALT/SGPT 17 U/L (12-78); BILIRUBIN,TOTAL 0.5 MG/DL (0.2-1.0); BLOOD UREA NITROGEN 18 MG/DL (7-18); CALCIUM LEVEL 9.8 MG/DL (8.8-10.2); CARBON DIOXIDE LEVEL 29 MEQ/L (21-32); CHLORIDE LEVEL 100 MEQ/L (98-107); CHOLESTEROL LEVEL 173 MG/DL (<200); CHOLESTEROL RISK RATIO 3.392 (<5); CREATININE FOR GFR 0.94 MG/DL (0.55-1.30); GLOMERULAR FILTRATION RATE > 60.0 (>39); GLUCOSE, FASTING 225 MG/DL (70-100); HDL CHOLESTEROL 51 MG/DL (>40); LDL CHOLESTEROL 78 MG/DL (<100); NON-HDL-C 122 MG/DL; POTASSIUM SERUM 3.8 MEQ/L (3.5-5.1); SODIUM LEVEL 137 MEQ/L (136-145); TOTAL 25(OH) VITAMIN D 47.7 NG/ML (30.0-100.0); TOTAL PROTEIN 7.1 GM/DL (6.4-8.2); TRIGLYCERIDES LEVEL 220 MG/DL (<150)
== END ==
LOC: M WUC 09:00
PROVIDERS: ATTEND Family Medicine
DX: E55.9 Vitamin D deficiency, unspecified (principal); E11.9 Type 2 diabetes mellitus without complications; Z79.899 Other long term (current) drug therapy

== ENCOUNTER → 2020-12-06 | Outpatient (CLI) | payer MEDICARE ==
[2020-12-06 12:29] LABS: HEMATOCRIT 40.4 % (36.0-47.0); HEMOGLOBIN 12.9 g/dl (12.0-15.5); MEAN CORPUSCULAR HEMOGLOBIN 28.7 pg (27.0-33.0); MEAN CORPUSCULAR HGB CONC 31.9 g/dl (32.0-36.5); MEAN CORPUSCULAR VOLUME 89.8 fl (80.0-96.0); PLATELET COUNT, AUTOMATED 189 10^3/uL (150-450)
[2020-12-06 13:03] LABS: ALBUMIN 3.6 GM/DL (3.2-5.2); BILIRUBIN,TOTAL 0.6 MG/DL (0.2-1.0); CREATININE FOR GFR 1.01 MG/DL (0.55-1.30); GLOMERULAR FILTRATION RATE 57.2 (>39); POTASSIUM SERUM 3.6 MEQ/L (3.5-5.1); TOTAL PROTEIN 6.7 GM/DL (6.4-8.2)
== END ==
LOC: M WUC 09:45
PROVIDERS: ATTEND Family Medicine
DX: Z01.818 Encounter for other preprocedural examination (principal)

== ENCOUNTER → 2020-12-09 | Outpatient (CLI) | payer MEDICARE ==
[2020-12-09 12:41] LABS: HEMOGLOBIN A1c 7.7 %
== END ==
LOC: M WUC 09:42
PROVIDERS: ATTEND Surgery
DX: Z01.812 Encounter for preprocedural laboratory examination (principal); E08.9 Diabetes mellitus due to underlying condition without complications; K43.2 Incisional hernia without obstruction or gangrene

== ENCOUNTER → 2020-12-23 | Outpatient (CLI) | payer MEDICARE ==
[~2020-12-23] MED LIST changes: +CALC600C3 PO; +D 50CAP3 PO; +FLON1SPR; +POTA99TA10 PO; +SYMB16INH INH
== END ==
LOC: M LABSMTC 11:15
PROVIDERS: ATTEND Anesthesiology
DX: Z20.822 Contact with and (suspected) exposure to COVID-19 (principal)

== ENCOUNTER 2020-12-28 06:05 | Inpatient (IN) | payer MEDICARE ==
[~2020-12-28] VITALS: Ht 162.6 cm; Wt 97.9 kg
[2020-12-28] VITALS (7 sets, daily range): BP systolic 130–163; BP diastolic 63–98
[~2020-12-28 06:05] MED LIST changes: +CelecoXIB (CeleBREX) 100 MG CAP PO ONE; +HEPARIN SOD (PORCINE) 5000UNITS/ML 1ML VIAL/SYRINGE SQ ONE; +LR 1,000 ML IV ONE
[2020-12-28] MEDS ORDERED: ROCURONIUM BROMIDE 50 MG/5 ML VIAL As Ordered ONE ×3 (07:13→14:21)
[2020-12-28] MEDS ORDERED: propofoL 200 MG/20 ML VIAL As Ordered ONE ×2 (07:13→15:38)
[2020-12-28] MEDS ORDERED: LIDOCAINE 2% 100MG/5ML SDV (FOR ANES.) As Ordered ONE (07:13)
[2020-12-28] MEDS ORDERED: MIDAZOLAM INJ 2MG/2ML VIAL (J2250 PER 1MG) As Ordered ONE (07:14)
[2020-12-28] MEDS ORDERED: fentaNYL 250 MCG/5 ML INJECTION (J3010) As Ordered ONE (07:14)
[2020-12-28] MEDS ORDERED: BUPIVACAINE LIPOSOME/PF 1.3% 20ML VIAL (13.3MG/ML)(EXPAREL)(C9290 PER1MG) As Ordered ONE (07:17)
[2020-12-28] MEDS ORDERED: BUPIVACAINE HCL 0.25% 10ML VIAL As Ordered ONE (07:17)
[2020-12-28] MEDS ORDERED: BUPIVACAINE HCL 0.25% 30ML VIAL As Ordered ONE (07:17)
[2020-12-28] MEDS ORDERED: LIDOCAINE 1% SDV 30ML VIAL As Ordered ONE (07:17)
[2020-12-28] MEDS ORDERED: ceFAZolin SOD 2 GM in IV 1 EA IV ONE (07:30)
[2020-12-28] MEDS ORDERED: LACRILUBE (AKWA TEARS) OPHTH OINT 3.5 GM As Ordered ONE (07:51)
[2020-12-28] MEDS ORDERED: KETOROLAC 60MG 2ML VIAL As Ordered ONE (08:47)
[2020-12-28] MEDS ORDERED: ONDANSETRON 4MG/2ML VIAL As Ordered ONE (08:47)
[2020-12-28] MEDS ORDERED: ACETAMINOPHEN 1000MG 100ML IV BTL (OFIRMEV) (J0131 PER 10MG) As Ordered ONE (08:48)
[2020-12-28] MEDS ORDERED: PHENYLephrine 500MCG 5ML (100MCG/ML) SYRINGE As Ordered ONE (08:53)
[2020-12-28] MEDS ORDERED: ceFAZolin 2 GM/D5W 50 ML IV BAG (J0690 PER 500MG) As Ordered ONE ×2 (11:13→15:05)
[2020-12-28] MEDS ORDERED: HYDROmorphone HCL 2 MG/ML 1ML VIAL (J1170) As Ordered ONE (11:16)
[2020-12-28] MEDS ORDERED: SUGAMMADEX SODIUM 500 MG/5 ML VIAL (BRIDION) As Ordered ONE (12:29)
[2020-12-28] MEDS ORDERED: ONDANSETRON 4MG/2ML VIAL IV PRN ×2 (16:45→16:50)
[2020-12-28] MEDS ORDERED: ALBUTEROL 90 MCG/ACT 8GM HFA INHALER INH PRN (16:45)
[2020-12-28] MEDS ORDERED: NORCO, ANEXSIA 5/325MG TABLET (HYDROcodone/ACETAMINOPHEN) PO PRN (16:45)
[2020-12-28] MEDS ORDERED: MORPHINE 2 MG/ML 1ML VIAL (J2270) IV PRN (16:45)
[2020-12-28] MEDS ORDERED: KETOROLAC 30 MG/ML 1ML VIAL IV PRN (16:45)
[2020-12-28] MEDS ORDERED: oxyCODONE 5MG TAB PO PRN (16:50)
[2020-12-28] MEDS ORDERED: LR 1,000 ML IV SCH (16:50)
[2020-12-28] MEDS ORDERED: HYDROMORPHONE HCL 0.5 MG/ 0.5 ML SYRINGE (J1170 PER 1) IV PRN (16:50)
[2020-12-28] MEDS ORDERED: fentaNYL 100 MCG/2 ML INJECTION (J3010) IV PRN (16:50)
[2020-12-28] MEDS: LR 1,000 ML IV SCH (18:13)
--- NOTE | 2020-12-28 19:32 | ROOPDOC ---
[facility] Report Of Operation Report of Operation DATE OF PROCEDURE: 12/28/20 PREPROCEDURE DIAGNOSES: incisional hernia, right upper quadrant, epigastric at the midline and primary umbilical hernia. POSTPROCEDURE DIAGNOSES: incisional hernia from prior subcostal incision with associated denervation, weakening most prominent at the transversus abdominis, epigastric area, umbilical hernia PROCEDURE: ETEP access, robotic assisted pascual-stoppa repair of multiple incisional hernias, unilateral (right) transversus abdominis release US guided transversus abdominis plane block. SURGEON: Armando Moran MD CORRECTIONS SERGEANT: Jessie Linda NP ANESTHESIA: General Anesthesia. ESTIMATED BLOOD LOSS: Approximately 100 mL. COMPLICATIONS: . REMARKS: Patient is a 75-year-old female who has a large incisional hernia on the upper abdomen related to a prior subcostal incision PROCEDURE NOTE: . DESCRIPTION OF PROCEDURE: Etep access Pascual Stoppa Repair Patient was given a dose of Ancef 2 g IV preoperatively for wound prophylaxis. She was brought to the operating room, placed supine on the table. Compression boots placed on bilateral lower extremities for DVT prophylaxis. General endotracheal anesthesia then started. A Anaya catheter was placed for urine output monitoring. Anesthesia performed a transversus abdominis plane block under ultrasound guidance on both sides. Using the ultrasound I marked her semilunar line on both sides as well as the area of the hernia defect. She was placed so that the break on the table is at the level of her umbilicus. Her abdomen was then widely prepped and draped in usual sterile fashion. The bed was flexed to increase the space in between her costal cartilage and anterior superior iliac spine. Both arms were tucked.We paused for a surgical timeout using both pre-incision safety checklist to verify correct patient, procedure site and additional clinical information prior to beginning the procedure Patient's hernia is located at the level of the umbilicus roughly about a 4 x [address]. She had a prior gastric bypass and so far has lost about 160 pounds and has maintained this though she remained still on the morbidly obese side due to a current BMI of 42. She has had at least one documented possible transient incarceration of bowels into the hernia. She has plateaued on her weight loss and I think this is right time to perform uninterpretable repair. Plan is for a Pascual Stoppa type repair via eTEP approach I started with the left upper quadrant and 3 medial to the left semilunar line. After creating a small incision theKii Fios 5 mm optical port was placed in through to the retro-muscular plane on the left upper quadrant under direct vision of a 5 mm laparoscope. Insufflation and started to a pressure of 15 mmHg to separate the rectus muscle from the posterior sheath. I continued with blunt dissection to create space inferior to our entry. Once an adequate space about 8-10 cm inferiorly was created an 8 mm robotic trocar was placed under direct vision of the laparoscope. Using this as my instrument port site used a laparoscopic scissors connected to a monopolar cautery to continue inferior dissection down to the level of the pubic tubercle. Another 8 mm robotic trocar was placed under direct vision about 8-10 cm below the second port. The original 5 mm port was exchanged for an 8 mm robotic trocar. I completed the dissection of the left retro-muscular plane by freeing up the area superior to our initial entry. The da Poly robot was then positioned in place and the trochars duct to the robot. I used a 8 mm camera pointed upwards, laparoscopic scissors as well as a forced bipolar instrument for the procedure. I then scrubbed in to control of the camera and instruments at the surgeon's console. I further develop the left retro-muscular plane to the level of the linea alba. I then crossed over just above the level of the falciform ligament. The posterior sheath was divided about 1 cm from the left linea alba margin to enter the preperitoneal plane above the falciform ligament. He continued developing this plane until we reached the right rectus muscle. The posterior sheath on the right side of the linea alba was then opened up revealing the rectus muscle and the retro-muscular plane and this side was further developed mostly bluntly. After connecting all this 3 spaces I proceeded going inferiorly to the level of the hernia defect just about the level of the umbilicus. I further develop the margins of the left linea alba plain to the pubic tubercle. Again the space above the umbilical ligaments were opened up and developed to encircle our hernia defect. I tried to conserve some of the hernia sac for later closure of the posterior sheath. Once I entered the abdominal cavity was easier to come around the hernia defect. The rest of the right side retro-muscular plane was then further developed to the right semilunaris line delineated by the presence of the neurovascular bundles on the side which were preserved. After this the dimensions of the hernia was measured to be 5 x 4 cm. The cavity has some honeycombing effect and extends to the thinned out skin. A small amount of the hernia sac on the left side was preserved but most of the hernia sac remained intact. I then switched the camera to the downward view and evaluated my posterior sheath. The midline defect seems to come together well without much tension. This was closed with a running suture of a 2-0V LOC. The preservation some of the hernia sac allowed for easier closure of the posterior sheath. I surveyed the posterior sheath for any holes in them as well as for proper hemostasis. I then again switched view looking up towards the hernia defects/anterior sheath was then closed using an 18 inch 0 nonabsorbable V LOC. I started well below the hernia defect to the confluence of the linea alba going up towards the hernia defect. With closure of the hernia the hernia sac was also plicated with the closure to close the space within the hernia itself. I used a total of 318 inch V LOC to close the hernia defect likewise the diastases up above the hernia defect though I did not proceed much further than 10 cm above the defect with the plication of the diastases. With this performed I scrubbed back in. I measured the dimensions of the retro- muscular space to be 25 x 20 cm. I chose a 30 x 30 cm uncoated midweight polypropylene mesh and trimmed this to the proper size and configuration. We resumed laparoscopically and remove the robot from the field. The mesh was introduced to the retro-muscular space and unrolled to cover the whole space. I did not put any suture fixation symphysis was well accommodated into the space. Tisseel fibrin glue was used both to temporarily fix the mesh to the floor and keep this flattened as well as for hemostasis. I again surveyedand once satis fied this was deflated. The skin incisions were closed with 4-0 Monocryl in subcuticular fashion. No drains were left in place. Dermabond glue was used to cover the skin incision. Patient tolerated the procedure well. She was promptly awakened, extubated and brought to the recovery room in stable condition ARMANDO MORAN MD Dec 28, 2020 19:32
[2020-12-28] MEDS: METOPROLOL TART 50 MG TAB PO SCH (20:44)
[2020-12-28] MEDS: SENOKOT S TAB PO SCH (20:44)
[2020-12-28] MEDS: SIMVASTATIN 20 MG TAB PO SCH (20:44)
[2020-12-29] MEDS: LR 1,000 ML IV SCH ×2 (01:56→09:25)
[2020-12-29 02:00] VITALS: BP 148/63
[2020-12-29 06:00] VITALS: BP 144/63
[2020-12-29 06:27] LABS: BASO % 0.5 % (0.0-1.0); EOS # 0.3 10^3/uL (0.0-0.5); EOS % 4.4 % (0.0-3.0); HEMATOCRIT 34.1 % (36.0-47.0); HEMOGLOBIN 10.9 g/dl (12.0-15.5); LYMPH # 1.5 10^3/uL (1.5-5.0); LYMPH % 25.5 % (24.0-44.0); MEAN CORPUSCULAR HEMOGLOBIN 28.2 pg (27.0-33.0); MEAN CORPUSCULAR VOLUME 88.1 fl (80.0-96.0); MONO # 0.6 10^3/uL (0.0-0.8); MONO % 9.4 % (2.0-8.0); NEUTROPHILS # 3.5 10^3/uL (1.5-8.5); NEUTROPHILS % 59.9 % (36.0-66.0); PLATELET COUNT, AUTOMATED 151 10^3/uL (150-450); RED BLOOD COUNT 3.87 10^6/uL (4.00-5.40); WHITE BLOOD COUNT 5.9 10^3/uL (4.0-10.0)
[2020-12-29 06:54] LABS: CALCIUM LEVEL 7.8 MG/DL (8.8-10.2); CREATININE FOR GFR 1.12 MG/DL (0.55-1.30); GLOMERULAR FILTRATION RATE 50.8 (>39); POTASSIUM SERUM 3.5 MEQ/L (3.5-5.1)
[2020-12-29] MEDS: NORCO, ANEXSIA 5/325MG TABLET (HYDROcodone/ACETAMINOPHEN) PO PRN ×2 (09:24→20:56)
[2020-12-29] MEDS: SENOKOT S TAB PO SCH ×2 (09:24→20:54)
[2020-12-29] MEDS: ENOXAPARIN 40MG/0.4ML SYRINGE (J1650 PER 10MG) SC SCH (09:24)
[2020-12-29 10:00] VITALS: BP 146/64
--- NOTE | 2020-12-29 12:18 | IPNPDOC ---
Text Note Date of Service The patient was seen on 12/29/20. NOTE Gen. surgery Dr. Moran The patient is a 75-year-old female status post robotic-assisted incisional hernia, ventral/umbilical hernia repair as per Dr. Moran 12/28/20. This morning, the patient is reporting some incisional pain. She has not yet been out of bed. She has not yet taken any medication for pain. I have encouraged her to try some if needed. Anaya catheter in place. Denies nausea or vomiting. Tolerating po. General. Awake and alert, resting in bed. NAD MMM Lungs clear to auscultation anteriorly. S1-S2 regular rate and rhythm. Abdomen with dressings intact over surgical sites. LORETTA drain 2. Small amount of drainage is noted on the dressing left lower abdomen LORETTA site. Otherwise surgical sites are C/D/I. Anaya catheter. Extremities no edema. WBC 5.9 Hemoglobin 10.9 Platelet count 151 PO intake yesterday 645 mL. I/O 6145/405 +5740. LORETTA drain left 80 mL. LORETTA drain right not recorded. Assessment/plan Status post robotic-assisted incisional hernia, ventral/umbilical hernia repair as per Dr. Moran 12/28/20. The patient is reporting some incisional discomfort but has not yet taken any pain medication, encouraged her to use it if needed. IVF 125 ml/hr. Plan to DC when taking in more PO. LORETTA drain x [address] Encourage incentive spirometer. Encourage out of bed. Plan to DC Anaya this morning. Patient wear abdominal binder when up out of bed. Continue to monitor. DVT prophylaxis. Lovenox. VS,Fishbone, I+O VS, Fishbone, I+O Laboratory Tests 12/29/20 05:38 Vital Signs Date Time Temp Pulse Resp B/P (MAP) Pulse Ox O2 Delivery O2 Flow Rate FiO2 12/29/20 10:00 98.4 80 18 146/64 (91) 96 Nasal Cannula 2.0 I&O- Last 24 Hours up to 6 AM 12/29/20 06:00 Intake Total 7545 ml Output Total 1045 ml Balance 6500 ml Mee Adam Dec 29, 2020 12:18
[2020-12-29 14:00] VITALS: BP 142/63
[2020-12-29] MEDS: SIMVASTATIN 20 MG TAB PO SCH (20:54)
[2020-12-29 20:55] VITALS: BP 146/81
[2020-12-29] MEDS: METOPROLOL TART 50 MG TAB PO SCH (20:55)
[2020-12-29] MEDS ORDERED: metFORMIN (GLUCOPHAGE) 500MG TAB PO SCH (21:00)
[2020-12-29 22:00] VITALS: BP 146/81
[2020-12-30 06:00] VITALS: BP 147/78
[2020-12-30] MEDS ORDERED: metFORMIN (GLUCOPHAGE) 1000 MG TABLET PO SCH (08:00)
[2020-12-30] MEDS: SENOKOT S TAB PO SCH (08:48)
[2020-12-30] MEDS: ENOXAPARIN 40MG/0.4ML SYRINGE (J1650 PER 10MG) SC SCH (08:48)
[2020-12-30] MEDS ORDERED: IBUP-1022 PO (08:59)
--- NOTE | 2020-12-30 15:08 | DS.PDOC ---
Discharge Summary General Date of Admission Dec 28, 2020 at 06:05 Date of Discharge 12/30/20 Discharge Summary PROCEDURES PERFORMED DURING STAY: status post robotic-assisted incisional hernia, ventral/umbilical hernia repair as per Dr. Moran 12/28/20. ADMITTING DIAGNOSES: status post robotic-assisted incisional hernia, ventral/umbilical hernia repair as per Dr. Moran 12/28/20. Obesity. BMI 37.0. Hypertension Diabetes Hypercholesterolemia Asthma Allergies DISCHARGE DIAGNOSES: status post robotic-assisted incisional hernia, ventral/umbilical hernia repair as per Dr. Moran 12/28/20. Obesity. BMI 37.0. Hypertension Diabetes Hypercholesterolemia Asthma Allergies HISTORY OF PRESENT ILLNESS: The patient is a 75-year-old female status post robotic-assisted incisional hernia, ventral/umbilical hernia repair as per Dr. Moran 12/28/20. HOSPITAL COURSE: The patient recovered well postoperatively. Postoperative day #1 her Anaya was discontinued, she was out of bed and ambulating. She was advised to wear an abdominal binder when up out of bed. She was advanced to a consistent carbohydrate diet. She had about 300 mL Ceron in her LORETTA drains, serosanguineous. By postoperative day #2 she was out of bed to the chair. Reporting pain was controlled and had used only one tablet [place] during her recovery. The patient was reviewed and examined as per Dr. Moran with plan to discontinue the patient with her LORETTA drains. The patient was counseled to record drainage from each drain twice daily. Continue to wear the abdominal binder when up out of bed. Encourage ambulation. She did not feel she needed any medication for pain, it was discussed she could try ibuprofen 600 mg as needed, a small prescription was provided for this. Otherwise Tylenol as needed. DISCHARGE MEDICATIONS: Please see below. ALLERGIES: Please see below. PHYSICAL EXAMINATION ON DISCHARGE: VITAL SIGNS: Please see below. GENERAL: Out of bed,NAD. HEENT: MMM CARDIOVASCULAR EXAMINATION: RRR RESPIRATORY EXAMINATION: CTA ABDOMINAL EXAMINATION: Protuberant but soft, mild tenderness around incision sites. Incisions are C/D/I, serosanguineous drainage noted in LORETTA drains. EXTREMITIES: No edema LABORATORY DATA: Please see below. DISCHARGE INSTRUCTIONS: Discharge home ACTIVITY: As tolerated. No lifting greater than 20 pounds. DIET: Consistent carbohydrate The patient is advised to cover her abdominal incision so they do not get wet if she showers. Afterward, apply clean dry dressing. Patient is advised to record LORETTA drain output twice daily. No baths Continue to wear abdominal binder when up out of bed. Call office with any changes or concerns Ibuprofen 600 mg by mouth every 6 hours as needed. Tylenol as needed. DISCHARGE CONDITION: Stable. TIME SPENT ON DISCHARGE: Greater than 30 minutes. Vital Signs/I&Os Vital Signs Date Time Temp Pulse Resp B/P (MAP) Pulse Ox O2 Delivery O2 Flow Rate FiO2 12/30/20 06:00 98.2 87 16 147/78 (101) 94 Room Air 12/29/20 14:00 2.0 I&O- Last 24 Hours up to 6 AM 12/30/20 05:59 Intake Total 1300 ml Output Total 2433 ml Balance -1133 ml Laboratory Data Labs 24H Laboratory Tests 2 12/29/20 16:53: Bedside Glucose (Misc Panel) 190H 12/29/20 20:53: Bedside Glucose (Misc Panel) 208H 12/30/20 06:55: Bedside Glucose (Misc Panel) 173H FSBS Laboratory Tests Test 12/29/20 16:53 12/29/20 20:53 12/30/20 06:55 Range/Units Bedside Glucose (Misc Panel) 190 208 173 83-110 MG/DL Discharge Medications Scheduled Budesonide/Formoterol (Symbicort 160-4.5 Mcg Inhaler) 6 Gm Hfa.aer.ad, 2 PUFF INH BID, (Reported) Calcium Carbonate/Vitamin D3 (Calcium 600+D Softgel) 1 Each Capsule, 1 CAP PO DAILY, (Reported) Lisinopril/Hydrochlorothiazide (Lisinopril-Hctz 20-25 mg Tab) 1 Each Tablet, 1 TAB PO BID, (Reported) Metformin HCl (Metformin HCl) 500 Mg Tablet, 1,000 MG PO DAILY, (Reported) Metformin HCl (Metformin HCl) 500 Mg Tablet, 500 MG PO QHS, (Reported) Metoprolol Tartrate (Metoprolol Tartrate) 50 Mg Tablet, 50 MG PO QHS, (Reported) Potassium Gluconate (Potassium) 99 Mg Tablet, 1 TAB PO BID, (Reported) Potassium Gluconate (Potassium Gluconate) 99 Mg Tablet, 2 TAB PO DAILY, (Reported) in the afternoon Simvastatin (Simvastatin) 20 Mg Tablet, 20 MG PO QHS, (Reported) Scheduled PRN Albuterol Sulfate (Albuterol Sulfate Hfa) 8.5 Gm Hfa.aer.ad, 1 PUFF INH Q4H PRN for SHORTNESS OF BREATH, (Reported) Fluticasone Propionate (Flonase Allergy Relief) 9.9 Ml [place].susp, 50 MCG NA DAILYPRN PRN for CONGESTION, (Reported) Ibuprofen (Ibuprofen) 600 Mg Tablet, 600 MG PO Q6H PRN for PAIN Miscellaneous Medications Cholecalciferol (Vitamin D3) (Vitamin D3) 125 Mcg Capsule, 125 MCG PO, (Repo rted) Allergies Coded Allergies: ciprofloxacin (Verified Allergy, Unknown, hives, 12/03/19) Mee Adam Dec 30, 2020 15:08
== END 2020-12-30 12:59 | disposition home or self-care (01) | DRG 355 ==
LOC: M OR 06:05 → M MSPAV 17:58
PROVIDERS: ADMIT Surgery; ATTEND Surgery
PROC: 0KNL4ZZ Release Left Abdomen Muscle, Percutaneous Endoscopic Approach (ICD-10-PCS; 2020-12-28)
PROC: 8E0W4CZ Robotic Assisted Procedure of Trunk Region, Percutaneous Endoscopic Approach (ICD-10-PCS; 2020-12-28)
PROC: 0KNK4ZZ Release Right Abdomen Muscle, Percutaneous Endoscopic Approach (ICD-10-PCS; 2020-12-28)
PROC: 0WUF4JZ Supplement Abdominal Wall with Synthetic Substitute, Percutaneous Endoscopic Approach (ICD-10-PCS; principal; 2020-12-28 07:30)
DX: K43.2 Incisional hernia without obstruction or gangrene (principal); I10 Essential (primary) hypertension; E11.9 Type 2 diabetes mellitus without complications; J45.909 Unspecified asthma, uncomplicated; E78.00 Pure hypercholesterolemia, unspecified; E66.9 Obesity, unspecified; Z68.37 Body mass index [BMI] 37.0-37.9, adult; Z79.899 Other long term (current) drug therapy; Z88.8 Allergy status to other drugs, medicaments and biological substances

== ENCOUNTER → 2021-03-02 | Outpatient (REF) | payer MEDICARE ==
[~2021-03-02] MED LIST changes: -CelecoXIB (CeleBREX) 100 MG CAP PO ONE; -HEPARIN SOD (PORCINE) 5000UNITS/ML 1ML VIAL/SYRINGE SQ ONE; -HM P99TA PO; +IBUP-1022 PO; -LR 1,000 ML IV ONE; +POTA99TA14 PO
== END ==
LOC: M PLALAB 09:15
PROVIDERS: ATTEND Obstetrics & Gynecology
DX: R35.0 Frequency of micturition (principal); N90.89 Other specified noninflammatory disorders of vulva and perineum

== ENCOUNTER → 2021-03-02 | Outpatient (REF) | payer MEDICARE | LOC: M SFHCWAGY 13:54 | PROVIDERS: ATTEND Obstetrics & Gynecology | DX: N90.89 Other specified noninflammatory disorders of vulva and perineum (principal) ==

== ENCOUNTER → 2021-03-02 | Outpatient (REF) | payer MEDICARE | LOC: M SFHCWAGY 12:55 | PROVIDERS: ATTEND Obstetrics & Gynecology | DX: R35.0 Frequency of micturition (principal) ==

== ENCOUNTER → 2021-09-01 | Outpatient (CLI) | payer MEDICARE ==
[~2021-09-01] MED LIST changes: -KLOR20TA42 PO; -LISI20TA20 PO; +LISI20TA37 PO; +POTA-141 PO
[2021-09-01 13:06] LABS: HEMATOCRIT 42.3 % (36.0-47.0); HEMOGLOBIN 13.4 g/dl (12.0-15.5); MEAN CORPUSCULAR HEMOGLOBIN 28.2 pg (27.0-33.0); MEAN CORPUSCULAR HGB CONC 31.7 g/dl (32.0-36.5); MEAN CORPUSCULAR VOLUME 88.9 fl (80.0-96.0); PLATELET COUNT, AUTOMATED 228 10^3/uL (150-450); RED BLOOD COUNT 4.76 10^6/uL (4.00-5.40); WHITE BLOOD COUNT 7.5 10^3/uL (4.0-10.0)
[2021-09-01 13:31] LABS: HEMOGLOBIN A1c 7.9 %
[2021-09-01 13:34] LABS: ALBUMIN 3.8 GM/DL (3.2-5.2); ALT/SGPT 17 U/L (12-78); BILIRUBIN,TOTAL 0.6 MG/DL (0.2-1.0); BLOOD UREA NITROGEN 15 MG/DL (7-18); CALCIUM LEVEL 9.9 MG/DL (8.8-10.2); CARBON DIOXIDE LEVEL 29 MEQ/L (21-32); CHLORIDE LEVEL 103 MEQ/L (98-107); CHOLESTEROL LEVEL 163 MG/DL (<200); CREATININE FOR GFR 0.94 MG/DL (0.55-1.30); GLOMERULAR FILTRATION RATE > 60.0 (>39); GLUCOSE, FASTING 180 MG/DL (70-100); HDL CHOLESTEROL 50 MG/DL (>40); LDL CHOLESTEROL 70 MG/DL (<100); NON-HDL-C 113 MG/DL; POTASSIUM SERUM 4.2 MEQ/L (3.5-5.1); SODIUM LEVEL 141 MEQ/L (136-145); TOTAL PROTEIN 7.1 GM/DL (6.4-8.2); TRIGLYCERIDES LEVEL 217 MG/DL (<150)
[2021-09-01 13:40] LABS: TOTAL 25(OH) VITAMIN D 45.5 NG/ML (30.0-100.0)
== END ==
LOC: M PLALAB 09:21
PROVIDERS: ATTEND Family Medicine
DX: E55.9 Vitamin D deficiency, unspecified (principal); E11.9 Type 2 diabetes mellitus without complications

== ENCOUNTER → 2022-09-04 | Outpatient (CLI) | payer MEDICARE ==
[2022-09-04 14:30] LABS: HEMATOCRIT 40.3 % (36.0-47.0); HEMOGLOBIN 12.7 g/dl (12.0-15.5); MEAN CORPUSCULAR HEMOGLOBIN 27.8 pg (27.0-33.0); MEAN CORPUSCULAR HGB CONC 31.5 g/dl (32.0-36.5); MEAN CORPUSCULAR VOLUME 88.2 fl (80.0-96.0); PLATELET COUNT, AUTOMATED 235 10^3/uL (150-450); RED BLOOD COUNT 4.57 10^6/uL (4.00-5.40); WHITE BLOOD COUNT 7.3 10^3/uL (4.0-10.0)
[2022-09-04 15:22] LABS: TOTAL 25(OH) VITAMIN D 43.7 NG/ML (20.0-100.0)
[2022-09-04 15:55] LABS: HEPATITIS C VIRUS ABY INDEX 0.1 INDEX (<0.8)
[2022-09-04 15:56] LABS: ALBUMIN 3.8 G/DL (3.2-5.2); ALKALINE PHOSPHATASE 74 U/L (46-116); ALT/SGPT 16 U/L (7.0-40); AST/SGOT 16 U/L (<34); BILIRUBIN,TOTAL 0.6 MG/DL (0.3-1.2); BLOOD UREA NITROGEN 20 MG/DL (9-23); CALCIUM LEVEL 9.7 MG/DL (8.3-10.6); CARBON DIOXIDE LEVEL 29 MMOL/L (20-31); CHLORIDE LEVEL 99 MMOL/L (98-107); CHOLESTEROL LEVEL 141 MG/DL (<200); CHOLESTEROL RISK RATIO 2.86 (<5); CREATININE FOR GFR 0.78 MG/DL (0.55-1.30); GLOMERULAR FILTRATION RATE > 60.0 (>39); GLUCOSE, FASTING 183 MG/DL (74-106); HDL CHOLESTEROL 49.2 MG/DL (>40); LDL CHOLESTEROL 55.8 MG/DL (<100); NON-HDL-C 92 MG/DL; POTASSIUM SERUM 3.4 MMOL/L (3.5-5.1); SODIUM LEVEL 139 MMOL/L (136-145); TOTAL PROTEIN 6.6 G/DL (5.7-8.2); TRIGLYCERIDES LEVEL 180 MG/DL (<150)
[2022-09-04 17:01] LABS: CREATININE, URINE 68.6 MG/DL
[2022-09-04 17:03] LABS: MALB URINE SIEMENS < 5.0 MG/DL; MAU/CREAT RATIO 7.2 MCG/MG (0.0-30.0)
== END ==
LOC: M WUC 08:44
PROVIDERS: ATTEND Family Medicine
DX: E55.9 Vitamin D deficiency, unspecified (principal); Z13.818 Encounter for screening for other digestive system disorders; E11.9 Type 2 diabetes mellitus without complications; Z79.899 Other long term (current) drug therapy

== ENCOUNTER 2023-07-04 08:19 | Day surgery (SDC) | payer MEDICARE ==
[~2023-07-04] VITALS: Ht 162.6 cm; Wt 95.2 kg
[~2023-07-04 08:19] MED LIST changes: +ADVA115A INH; +BSS IRRIG/VANCO(10MG)/TOBRA(5MG)/EPINEPH(1:1000-0.5CC)500ML BAG-ORONLY IR ONE; +CEFUROXIME 1MG/0.1ML INTRACAMERAL INJ As Ordered ONE; +CYCLOPENTOLATE 1% OPHTH SOLN 2ML BTL OD SCH; +GLIM1TAB4 PO; +LIDOCAINE 1% SDV 5ML VIAL As Ordered ONE; +LIDOCAINE 3.5 % 1ML OPHTH TOPICAL GEL OU ONE; +METO1TAB7 PO; +OFLOXACIN 0.3 % (OCUFLOX) OPTH SOL 5ML OD ONE; +PHENYLEPHRINE 10% OPHTH SOL 5ML OD PRN; +PHENYLEPHRINE 2.5% OPHTH SOL 2ML OD SCH; +TROPICAMIDE 1% OPHTH SOLN 15ML OD SCH
[2023-07-04] MEDS ORDERED: MIDAZOLAM INJ 2MG/2ML VIAL As Ordered ONE (09:28)
[2023-07-04] MEDS ORDERED: fentaNYL 100 MCG/2 ML INJECTION As Ordered ONE (09:28)
[2023-07-04 11:20] VITALS: BP 155/68; TEMP 97.7; O2SAT 96
== END 2023-07-04 11:20 | disposition home or self-care (01) ==
LOC: M SDC 08:19
PROVIDERS: ATTEND Ophthalmology
DX: H25.11 Age-related nuclear cataract, right eye (principal); E11.9 Type 2 diabetes mellitus without complications; K21.9 Gastro-esophageal reflux disease without esophagitis; E78.5 Hyperlipidemia, unspecified; I10 Essential (primary) hypertension; J30.2 Other seasonal allergic rhinitis; J45.909 Unspecified asthma, uncomplicated; Z79.51 Long term (current) use of inhaled steroids; Z79.899 Other long term (current) drug therapy; Z79.84 Long term (current) use of oral hypoglycemic drugs
CPT/HCPCS: 66984; J0697; J2250; J3010; V2632

== ENCOUNTER → 2023-10-02 | Outpatient (CLI) | payer MEDICARE ==
[~2023-10-02] MED LIST changes: -BSS IRRIG/VANCO(10MG)/TOBRA(5MG)/EPINEPH(1:1000-0.5CC)500ML BAG-ORONLY IR ONE; -CEFUROXIME 1MG/0.1ML INTRACAMERAL INJ As Ordered ONE; -CYCLOPENTOLATE 1% OPHTH SOLN 2ML BTL OD SCH; -LIDOCAINE 1% SDV 5ML VIAL As Ordered ONE; -LIDOCAINE 3.5 % 1ML OPHTH TOPICAL GEL OU ONE; -OFLOXACIN 0.3 % (OCUFLOX) OPTH SOL 5ML OD ONE; -PHENYLEPHRINE 10% OPHTH SOL 5ML OD PRN; -PHENYLEPHRINE 2.5% OPHTH SOL 2ML OD SCH; -TROPICAMIDE 1% OPHTH SOLN 15ML OD SCH
[2023-10-02 13:18] LABS: BASO # 0.1 10^3/uL (0.0-0.2); BASO % 0.7 % (0.0-1.0); EOS # 0.4 10^3/uL (0.0-0.5); EOS % 5.2 % (0.0-3.0); HEMATOCRIT 44.1 % (36.0-47.0); HEMOGLOBIN 13.9 g/dl (12.0-15.5); LYMPH # 1.6 10^3/uL (1.5-5.0); LYMPH % 22.7 % (24.0-44.0); MEAN CORPUSCULAR HEMOGLOBIN 27.6 pg (27.0-33.0); MEAN CORPUSCULAR HGB CONC 31.5 g/dl (32.0-36.5); MEAN CORPUSCULAR VOLUME 87.5 fl (80.0-96.0); MONO # 0.5 10^3/uL (0.0-0.8); MONO % 6.9 % (2.0-8.0); NEUTROPHILS # 4.5 10^3/uL (1.5-8.5); NEUTROPHILS % 64.1 % (36.0-66.0); PLATELET COUNT, AUTOMATED 244 10^3/uL (150-450); RED BLOOD COUNT 5.04 10^6/uL (4.00-5.40); WHITE BLOOD COUNT 7.1 10^3/uL (4.0-10.0)
[2023-10-02 13:35] LABS: HEMOGLOBIN A1c 6.7 % (4.0-6.0)
[2023-10-02 13:40] LABS: ALBUMIN 3.8 G/DL (3.2-5.2); ALKALINE PHOSPHATASE 85 U/L (46-116); ALT/SGPT 15 U/L (7.0-40); AST/SGOT 15 U/L (<34); BILIRUBIN,TOTAL 0.7 MG/DL (0.3-1.2); BLOOD UREA NITROGEN 28 MG/DL (9-23); CALCIUM LEVEL 9.5 MG/DL (8.3-10.6); CARBON DIOXIDE LEVEL 30 MMOL/L (20-31); CHLORIDE LEVEL 103 MMOL/L (98-107); CHOLESTEROL LEVEL 167 MG/DL (<200); CHOLESTEROL RISK RATIO 3.08 (<5); CREATININE FOR GFR 0.89 MG/DL (0.55-1.30); GLOMERULAR FILTRATION RATE > 60.0 (>39); GLUCOSE, FASTING 134 MG/DL (74-106); HDL CHOLESTEROL 54.1 MG/DL (>40); LDL CHOLESTEROL 80.9 MG/DL (<100); NON-HDL-C 112.9 MG/DL; POTASSIUM SERUM 3.9 MMOL/L (3.5-5.1); SODIUM LEVEL 140 MMOL/L (136-145); TOTAL PROTEIN 6.6 G/DL (5.7-8.2); TRIGLYCERIDES LEVEL 160 MG/DL (<150)
== END ==
LOC: M WUC 09:52
PROVIDERS: ATTEND Family Medicine
DX: E55.9 Vitamin D deficiency, unspecified (principal); E11.69 Type 2 diabetes mellitus with other specified complication

== ENCOUNTER → 2023-11-07 | Day surgery (SDC) | payer MEDICARE ==
[~2023-11-07] VITALS: Ht 162.6 cm; Wt 94.3 kg
[~2023-11-07] MED LIST changes: +CEFD1CAP9 PO; +MIDAZOLAM INJ 2MG/2ML VIAL As Ordered ONE; +PHENYLEPHRINE 10% OPHTH SOL 5ML OS PRN; +fentaNYL 100 MCG/2 ML INJECTION As Ordered ONE
[2023-11-07] MEDS: LIDOCAINE 3.5 % 1ML OPHTH TOPICAL GEL OU ONE (09:49)
[2023-11-07] MEDS: OFLOXACIN 0.3 % (OCUFLOX) OPTH SOL 5ML OS ONE (09:49)
[2023-11-07] MEDS: PHENYLEPHRINE 2.5% OPHTH SOL 2ML OS SCH (09:50)
[2023-11-07] MEDS: TROPICAMIDE 1% OPHTH SOLN 15ML OS SCH (09:50)
[2023-11-07] MEDS: CYCLOPENTOLATE 1% OPHTH SOLN 2ML BTL OS SCH (09:50)
[2023-11-07] MEDS: BSS IRRIG/VANCO(10MG)/TOBRA(5MG)/EPINEPH(1:1000-0.5CC)500ML BAG-ORONLY As Ordered ONE (10:35)
[2023-11-07] MEDS: LIDOCAINE 1% SDV 5ML VIAL As Ordered ONE (10:35)
[2023-11-07] MEDS: CEFUROXIME 1MG/0.1ML INTRACAMERAL INJ As Ordered ONE (10:37)
[2023-11-07 10:47] VITALS: BP 138/77; TEMP 97.1; O2SAT 98
== END | disposition home or self-care (01) ==
LOC: M SDC 09:10
PROVIDERS: ATTEND Ophthalmology
DX: H25.12 Age-related nuclear cataract, left eye (principal); I10 Essential (primary) hypertension; E78.5 Hyperlipidemia, unspecified; E11.9 Type 2 diabetes mellitus without complications; K21.9 Gastro-esophageal reflux disease without esophagitis; J45.909 Unspecified asthma, uncomplicated; Z79.51 Long term (current) use of inhaled steroids; Z79.84 Long term (current) use of oral hypoglycemic drugs; Z79.899 Other long term (current) drug therapy; J30.2 Other seasonal allergic rhinitis; Z87.891 Personal history of nicotine dependence
CPT/HCPCS: 66984; J0697; J2250; J3010; V2632

== ENCOUNTER → 2024-03-12 | Outpatient (CLI) | payer MEDICARE ==
[~2024-03-12] MED LIST changes: -GLIM1TAB4 PO; +GLIM1TAB84 PO; -MIDAZOLAM INJ 2MG/2ML VIAL As Ordered ONE; -PHENYLEPHRINE 10% OPHTH SOL 5ML OS PRN; -fentaNYL 100 MCG/2 ML INJECTION As Ordered ONE
== END ==
LOC: M RAD 11:26
PROVIDERS: ATTEND Family Medicine
DX: J45.909 Unspecified asthma, uncomplicated (principal)

== ENCOUNTER → 2024-05-06 | Outpatient (CLI) | payer MEDICARE ==
[2024-05-06 13:17] LABS: IONIZED CALCIUM 4.9 MG/DL (4.5-5.3)
[2024-05-06 15:36] LABS: MAGNESIUM LEVEL 1.3 MG/DL (1.8-2.4)
[2024-05-06 15:38] LABS: FOLATE 13.1 NG/ML (>5.4)
[2024-05-10 08:37] LABS: VITAMIN E(ALPHA TOCOPHEROL) 9.3 mg/L (5.7-19.9); VITAMIN E(GAMMA TOCOPHEROL) 2.9 mg/L (<=4.3)
== END ==
LOC: M LAB 12:21
PROVIDERS: ATTEND Physician Assistant
DX: I87.331 Chronic venous hypertension (idiopathic) with ulcer and inflammation of right lower extremity (principal); I87.322 Chronic venous hypertension (idiopathic) with inflammation of left lower extremity; L97.812 Non-pressure chronic ulcer of other part of right lower leg with fat layer exposed; E83.42 Hypomagnesemia

== ENCOUNTER → 2024-05-29 | Outpatient (CLI) | payer MEDICARE ==
[2024-05-29 12:55] LABS: BLOOD UREA NITROGEN 18 MG/DL (9-23); CALCIUM LEVEL 9.4 MG/DL (8.3-10.6); CARBON DIOXIDE LEVEL 31 MMOL/L (20-31); CHLORIDE LEVEL 102 MMOL/L (98-107); CREATININE FOR GFR 0.79 MG/DL (0.55-1.30); GLOMERULAR FILTRATION RATE > 60.0 (>39); GLUCOSE, FASTING 352 MG/DL (74-106); MAGNESIUM LEVEL 1.3 MG/DL (1.8-2.4); POTASSIUM SERUM 3.8 MMOL/L (3.5-5.1); SODIUM LEVEL 139 MMOL/L (136-145)
== END ==
LOC: M LAB 11:15
PROVIDERS: ATTEND Family Medicine
DX: E83.42 Hypomagnesemia (principal)

== ENCOUNTER → 2024-06-11 | Outpatient (CLI) | payer MEDICARE | LOC: M RAD 11:50 | PROVIDERS: ATTEND Physician Assistant | DX: I87.331 Chronic venous hypertension (idiopathic) with ulcer and inflammation of right lower extremity (principal); I87.2 Venous insufficiency (chronic) (peripheral); M79.604 Pain in right leg; M25.561 Pain in right knee; R09.89 Other specified symptoms and signs involving the circulatory and respiratory systems ==

== ENCOUNTER → 2024-07-07 | Outpatient (CLI) | payer MEDICARE | LOC: M LAB 11:13 | PROVIDERS: ATTEND Physician Assistant | DX: I87.331 Chronic venous hypertension (idiopathic) with ulcer and inflammation of right lower extremity (principal) ==

== ENCOUNTER → 2024-08-19 | Outpatient (CLI) | payer MEDICARE | LOC: M RAD 09:49 | PROVIDERS: ATTEND Nurse Practitioner Family | DX: I87.2 Venous insufficiency (chronic) (peripheral) (principal); M79.604 Pain in right leg ==

== ENCOUNTER → 2024-09-05 | Outpatient (CLI) | payer MEDICARE | LOC: M LAB 09:49 | PROVIDERS: ATTEND Physician Assistant | DX: I87.331 Chronic venous hypertension (idiopathic) with ulcer and inflammation of right lower extremity (principal) ==

== ENCOUNTER → 2024-11-05 | Outpatient (CLI) | payer MEDICARE | LOC: M LAB 12:54 | PROVIDERS: ATTEND Physician Assistant | DX: I87.331 Chronic venous hypertension (idiopathic) with ulcer and inflammation of right lower extremity (principal) ==

== ENCOUNTER → 2025-04-06 | Outpatient (CLI) | payer MEDICARE | LOC: M LAB 09:09 | PROVIDERS: ATTEND Physician Assistant | DX: I87.331 Chronic venous hypertension (idiopathic) with ulcer and inflammation of right lower extremity (principal) ==

== ENCOUNTER → 2025-04-06 | Outpatient (CLI) | payer MEDICARE ==
[2025-04-06 11:41] LABS: BASO # 0.1 10^3/uL (0.0-0.2); BASO % 0.8 % (0.0-1.0); EOS # 0.3 10^3/uL (0.0-0.5); EOS % 4.1 % (0.0-3.0); LYMPH # 1.5 10^3/uL (1.5-5.0); LYMPH % 21.0 % (24.0-44.0); MONO # 0.5 10^3/uL (0.0-0.8); MONO % 6.8 % (2.0-8.0); NEUTROPHILS # 4.7 10^3/uL (1.5-8.5); NEUTROPHILS % 66.9 % (36.0-66.0); PLATELET COUNT, AUTOMATED 218 10^3/uL (150-450)
[2025-04-06 12:11] LABS: CREATININE, URINE 135.0 MG/DL; MALB URINE SIEMENS 8.0 MG/L; MAU/CREAT RATIO 5.9 MCG/MG (0.0-30.0)
[2025-04-06 12:12] LABS: ALT/SGPT 11.0 U/L (7.0-40); AST/SGOT 17.0 U/L (<34); CALCIUM LEVEL 9.6 MG/DL (8.3-10.6); CARBON DIOXIDE LEVEL 29.0 MMOL/L (20-31); CHLORIDE LEVEL 102.0 MMOL/L (98-107); CHOLESTEROL LEVEL 155.0 MG/DL (<200); CHOLESTEROL RISK RATIO 3.38 (<5); CREATININE FOR GFR 0.97 MG/DL (0.55-1.30); GLOMERULAR FILTRATION RATE 59.8 (>39); LDL CHOLESTEROL 70.8 MG/DL (<100); NON-HDL-C 109.2 MG/DL; POTASSIUM SERUM 3.5 MMOL/L (3.5-5.1); SODIUM LEVEL 142.0 MMOL/L (136-145); TRIGLYCERIDES LEVEL 192.0 MG/DL (<150)
[2025-04-06 12:14] LABS: TOTAL 25(OH) VITAMIN D 44.2 NG/ML (20.0-100.0)
== END ==
LOC: M LAB 09:11
PROVIDERS: ATTEND Family Medicine
DX: E55.9 Vitamin D deficiency, unspecified (principal); E11.69 Type 2 diabetes mellitus with other specified complication

== ENCOUNTER 2025-06-11 12:46 | Inpatient (IN) | payer MEDICARE ==
[2025-06-11] VITALS (8 sets, daily range): BP systolic 125–232; BP diastolic 67–110; TEMP 98.1–99.7; O2SAT 93–98
[~2025-06-11] VITALS: Ht 162.6 cm; Wt 94.7 kg
[~2025-06-11 12:46] MED LIST changes: -IBUP-1022 PO; +IBUP600T42 PO
[2025-06-11] MEDS ORDERED: ISOVUE-370 76% 100 ML VIAL As Ordered ONE (13:04)
[2025-06-11 13:26] LABS: BASO # 0.1 10^3/uL (0.0-0.2); BASO % 0.6 % (0.0-1.0); EOS # 0.3 10^3/uL (0.0-0.5); EOS % 4.0 % (0.0-3.0); LYMPH # 1.8 10^3/uL (1.5-5.0); LYMPH % 23.4 % (24.0-44.0); MONO # 0.5 10^3/uL (0.0-0.8); MONO % 6.8 % (2.0-8.0); NEUTROPHILS # 5.1 10^3/uL (1.5-8.5); NEUTROPHILS % 64.7 % (36.0-66.0); PLATELET COUNT, AUTOMATED 247 10^3/uL (150-450)
[2025-06-11 13:37] LABS: INR 0.94
[2025-06-11 13:54] LABS: CALCIUM LEVEL 10.0 MG/DL (8.3-10.6); CARBON DIOXIDE LEVEL 29.0 MMOL/L (20-31); CHLORIDE LEVEL 100.0 MMOL/L (98-107); CREATININE FOR GFR 0.86 MG/DL (0.55-1.30); GLOMERULAR FILTRATION RATE 69.1 (>39); POTASSIUM SERUM 3.7 MMOL/L (3.5-5.1); SODIUM LEVEL 142.0 MMOL/L (136-145)
[2025-06-11] MEDS ORDERED: GLIM2TAB29 PO (14:49)
[2025-06-11] MEDS ORDERED: MAGN400T2 PO (14:49)
[2025-06-11] MEDS ORDERED: SEMA0.257 SQ (14:49)
[2025-06-11] MEDS ORDERED: MONT10TA97 PO (14:49)
[2025-06-11] MEDS ORDERED: VITA200032 PO (14:50)
[2025-06-11] MEDS ORDERED: HOME MED LIST COMPLETE! XX SCH (14:50)
[2025-06-11] MEDS: ASPIRIN 81 MG CHEWABLE TABLET PO ONE (15:02)
[2025-06-11] MEDS: CLOPIDOGREL 75 MG TAB PO ONE (15:02)
[2025-06-11] MEDS ORDERED: DEXTROSE 50% 50 ML SYRINGE IV PRN (15:35)
[2025-06-11] MEDS ORDERED: GLUCAGON INJ 1 MG VIAL SC PRN (15:35)
[2025-06-11] MEDS ORDERED: GLUCOSE 4 GM CHEW PO PRN (15:35)
[2025-06-11] MEDS: **hydrALAZINE HCL** 25 MG TAB PO PRN (16:20)
[2025-06-11 16:30] LABS: ESTIMATED AVERAGE GLUCOSE 154.0 MG/DL (60-110)
[2025-06-11] MEDS: INSULIN LISPRO (NovoLOG) PER UNIT SC SCH ×2 (17:30→20:43)
[2025-06-11] MEDS: hydrALAZINE 20 MG/ML 1 ML VIAL IV ONE (19:15)
[2025-06-11] MEDS: BACTRIM 160MG/800MG DS TAB PO SCH (20:40)
[2025-06-11] MEDS: METOPROLOL SUCC. 50 MG *XL* TAB PO SCH (20:40)
[2025-06-11] MEDS: MONTELUKAST 10 MG TAB PO SCH (20:40)
[2025-06-11] MEDS: ATORVASTATIN 20 MG TAB PO SCH (20:41)
[2025-06-11] MEDS: hydrALAZINE 20 MG/ML 1 ML VIAL IV PRN (22:31)
[2025-06-11] MEDS: RAMELTEON 8 MG TAB PO PRN (23:13)
[2025-06-12 03:47] VITALS: BP 147/91; TEMP 97.9; O2SAT 98
[2025-06-12 06:02] LABS: PLATELET COUNT, AUTOMATED 225 10^3/uL (150-450)
[2025-06-12 06:35] LABS: CALCIUM LEVEL 9.8 MG/DL (8.3-10.6); CARBON DIOXIDE LEVEL 28.0 MMOL/L (20-31); CHLORIDE LEVEL 102.0 MMOL/L (98-107); CHOLESTEROL LEVEL 147.0 MG/DL (<200); CHOLESTEROL RISK RATIO 3.31 (<5); CREATININE FOR GFR 1.03 MG/DL (0.55-1.30); GLOMERULAR FILTRATION RATE 55.7 (>39); LDL CHOLESTEROL 69.0 MG/DL (<100); NON-HDL-C 102.6 MG/DL; POTASSIUM SERUM 3.6 MMOL/L (3.5-5.1); SODIUM LEVEL 142.0 MMOL/L (136-145); TRIGLYCERIDES LEVEL 168.0 MG/DL (<150)
[2025-06-12 07:49] VITALS: BP 178/92; TEMP 97; O2SAT 95
[2025-06-12] MEDS: CLOPIDOGREL 75 MG TAB PO SCH (08:50)
[2025-06-12] MEDS: ASPIRIN 81 MG ENTERIC TABLET PO SCH (08:50)
[2025-06-12] MEDS: ENOXAPARIN 40 MG/0.4 ML SYRINGE (J1650 PER 10MG) SC SCH (08:51)
[2025-06-12 12:01] VITALS: BP 164/78; TEMP 97.3; O2SAT 94
[2025-06-12 15:45] VITALS: BP 148/68; TEMP 98; O2SAT 97
[2025-06-12 19:33] VITALS: BP 203/78; TEMP 98.6; O2SAT 94
[2025-06-12] MEDS: SIMVASTATIN 40 MG TAB PO SCH (20:00)
[2025-06-12 23:06] VITALS: BP 128/58; TEMP 97.2; O2SAT 96
[2025-06-13] VITALS (11 sets, daily range): BP systolic 126–198; BP diastolic 60–110; TEMP 97.5–98.5; O2SAT 93–98
[2025-06-13 06:42] LABS: CALCIUM LEVEL 9.6 MG/DL (8.3-10.6); CARBON DIOXIDE LEVEL 27.0 MMOL/L (20-31); CHLORIDE LEVEL 103.0 MMOL/L (98-107); CREATININE FOR GFR 1.15 MG/DL (0.55-1.30); GLOMERULAR FILTRATION RATE 48.8 (>39); POTASSIUM SERUM 3.7 MMOL/L (3.5-5.1); SODIUM LEVEL 136.0 MMOL/L (136-145)
[2025-06-13] MEDS ORDERED: hydroCHLOROthiazide 25 MG TAB PO SCH (09:00)
[2025-06-13] MEDS: NS (Normal Saline) 0.9% 1,000 ML IV ONE ×2 (10:56→21:48)
[2025-06-13 13:17] LABS: PLATELET COUNT, AUTOMATED 207 10^3/uL (150-450)
[2025-06-13 13:45] LABS: ALT/SGPT 11.0 U/L (7.0-40); AST/SGOT 17.0 U/L (<34); CALCIUM LEVEL 9.1 MG/DL (8.3-10.6); CARBON DIOXIDE LEVEL 25.0 MMOL/L (20-31); CHLORIDE LEVEL 106.0 MMOL/L (98-107); CREATININE FOR GFR 1.08 MG/DL (0.55-1.30); GLOMERULAR FILTRATION RATE 52.6 (>39); MAGNESIUM LEVEL 1.4 MG/DL (1.8-2.4); PHOSPHORUS LEVEL 3.1 MG/DL (2.4-5.1); POTASSIUM SERUM 3.7 MMOL/L (3.5-5.1); SODIUM LEVEL 142.0 MMOL/L (136-145)
[2025-06-13] MEDS: MAG SULF 1GM/100ML (MAG RUN) 1 GM in IV 1 EA IV SCH (17:44)
[2025-06-13] MEDS: NS 500 ML IV ONE (21:01)
[2025-06-14 04:30] VITALS: BP 208/80; TEMP 97.6; O2SAT 96
[2025-06-14 06:11] LABS: BASO # 0.0 10^3/uL (0.0-0.2); BASO % 0.7 % (0.0-1.0); EOS # 0.3 10^3/uL (0.0-0.5); EOS % 5.6 % (0.0-3.0); LYMPH # 1.3 10^3/uL (1.5-5.0); LYMPH % 20.5 % (24.0-44.0); MONO # 0.5 10^3/uL (0.0-0.8); MONO % 8.0 % (2.0-8.0); NEUTROPHILS # 4.0 10^3/uL (1.5-8.5); NEUTROPHILS % 64.9 % (36.0-66.0); PLATELET COUNT, AUTOMATED 187 10^3/uL (150-450)
[2025-06-14 06:41] LABS: CALCIUM LEVEL 8.1 MG/DL (8.3-10.6); CARBON DIOXIDE LEVEL 24.0 MMOL/L (20-31); CHLORIDE LEVEL 110.0 MMOL/L (98-107); CREATININE FOR GFR 1.04 MG/DL (0.55-1.30); GLOMERULAR FILTRATION RATE 55.0 (>39); POTASSIUM SERUM 3.9 MMOL/L (3.5-5.1); SODIUM LEVEL 143.0 MMOL/L (136-145)
[2025-06-14 07:19] LABS: MAGNESIUM LEVEL 1.6 MG/DL (1.8-2.4)
[2025-06-14 07:44] VITALS: BP 176/88; TEMP 97.5; O2SAT 95
[2025-06-14] MEDS: MAGNESIUM OXIDE 400 MG TAB PO SCH (10:53)
[2025-06-14] MEDS: MAG SULF 1GM/100ML (MAG RUN) 1 GM in IV 1 EA IV SCH (10:53)
[2025-06-14 11:56] VITALS: BP 170/84; TEMP 97.7; O2SAT 97
[2025-06-14 19:45] VITALS: BP 171/75; TEMP 97.9; O2SAT 97
[2025-06-14] MEDS: LanTUS (INSULIN GLARGINE INJ) 1 UNITS/0.01 ML SC SCH (20:39)
[2025-06-14 23:18] VITALS: BP 224/80; TEMP 97.5; O2SAT 94
[2025-06-15] VITALS (16 sets, daily range): BP systolic 138–184; BP diastolic 50–86; TEMP 97.5–98.4; O2SAT 94–96
[2025-06-15 05:46] LABS: BASO # 0.1 10^3/uL (0.0-0.2); BASO % 0.8 % (0.0-1.0); EOS # 0.3 10^3/uL (0.0-0.5); EOS % 4.4 % (0.0-3.0); LYMPH # 1.3 10^3/uL (1.5-5.0); LYMPH % 17.4 % (24.0-44.0); MONO # 0.6 10^3/uL (0.0-0.8); MONO % 7.7 % (2.0-8.0); NEUTROPHILS # 5.2 10^3/uL (1.5-8.5); NEUTROPHILS % 69.2 % (36.0-66.0); PLATELET COUNT, AUTOMATED 196 10^3/uL (150-450)
[2025-06-15 06:17] LABS: CALCIUM LEVEL 8.5 MG/DL (8.3-10.6); CARBON DIOXIDE LEVEL 24.0 MMOL/L (20-31); CHLORIDE LEVEL 110.0 MMOL/L (98-107); CREATININE FOR GFR 0.96 MG/DL (0.55-1.30); GLOMERULAR FILTRATION RATE 60.6 (>39); MAGNESIUM LEVEL 1.7 MG/DL (1.8-2.4); POTASSIUM SERUM 3.7 MMOL/L (3.5-5.1); SODIUM LEVEL 139.0 MMOL/L (136-145)
[2025-06-15] MEDS: MAG SULF 1GM/100ML (MAG RUN) 1 GM in IV 1 EA IV SCH (09:26)
[2025-06-15] MEDS: DOCUSATE SODIUM 100 MG CAPSULE PO SCH (11:50)
[2025-06-15] MEDS: LABETALOL 100 MG/20 ML VIAL IV PRN (16:51)
[2025-06-15] MEDS ORDERED: METOPROLOL SUCC. 25 MG *XL* TAB PO SCH (21:00)
[2025-06-15] MEDS: METOPROLOL SUCC. 50 MG *XL* TAB PO SCH (21:27)
[2025-06-16] VITALS: BP 141/64; TEMP 98; O2SAT 96
[2025-06-16 03:59] VITALS: BP 139/64; TEMP 97.4; O2SAT 94
[2025-06-16 05:47] LABS: BASO # 0.1 10^3/uL (0.0-0.2); BASO % 0.8 % (0.0-1.0); EOS # 0.3 10^3/uL (0.0-0.5); EOS % 5.4 % (0.0-3.0); LYMPH # 1.3 10^3/uL (1.5-5.0); LYMPH % 22.7 % (24.0-44.0); MONO # 0.5 10^3/uL (0.0-0.8); MONO % 8.6 % (2.0-8.0); NEUTROPHILS # 3.7 10^3/uL (1.5-8.5); NEUTROPHILS % 62.2 % (36.0-66.0); PLATELET COUNT, AUTOMATED 213 10^3/uL (150-450)
[2025-06-16 06:21] LABS: CALCIUM LEVEL 8.2 MG/DL (8.3-10.6); CARBON DIOXIDE LEVEL 24.0 MMOL/L (20-31); CHLORIDE LEVEL 107.0 MMOL/L (98-107); CREATININE FOR GFR 1.07 MG/DL (0.55-1.30); GLOMERULAR FILTRATION RATE 53.2 (>39); MAGNESIUM LEVEL 1.9 MG/DL (1.8-2.4); POTASSIUM SERUM 3.9 MMOL/L (3.5-5.1); SODIUM LEVEL 140.0 MMOL/L (136-145)
[2025-06-16 06:34] VITALS: BP 149/68; TEMP 97.6; O2SAT 93
[2025-06-16 08:17] VITALS: BP 147/64
[2025-06-16] MEDS ORDERED: ASPI81TAEC PO (11:29)
[2025-06-16] MEDS ORDERED: SIMV40TA20 PO (11:29)
[2025-06-16] MEDS ORDERED: BACTDSTA PO (11:29)
[2025-06-16] MEDS ORDERED: CLOP75TA2 PO (11:29)
== END 2025-06-16 13:27 | disposition home or self-care (01) | DRG 65 ==
LOC: M ED 12:46 → M ED INP 12:47 → OBSVTOIN 18:51 → M PCU 20:18
PROVIDERS: ADMIT Internal Medicine; ATTEND Internal Medicine
DX: I63.512 Cerebral infarction due to unspecified occlusion or stenosis of left middle cerebral artery (principal); L97.919 Non-pressure chronic ulcer of unspecified part of right lower leg with unspecified severity; I47.10 Supraventricular tachycardia, unspecified; I16.9 Hypertensive crisis, unspecified; E11.9 Type 2 diabetes mellitus without complications; I10 Essential (primary) hypertension; I87.2 Venous insufficiency (chronic) (peripheral); E78.5 Hyperlipidemia, unspecified; I69.320 Aphasia following cerebral infarction; E83.42 Hypomagnesemia; Z79.899 Other long term (current) drug therapy

== ENCOUNTER → 2025-06-16 | Outpatient (CLI) | payer MEDICARE ==
[~2025-06-16] MED LIST changes: +ASPI81TAEC PO; +BACTDSTA PO; +CLOP75TA2 PO; +GLIM2TAB29 PO; +MAGN400T2 PO; +MONT10TA97 PO; +SEMA0.257 SQ; +SIMV40TA20 PO; +VITA200032 PO
== END ==
LOC: M EKG 16:14
PROVIDERS: ATTEND Internal Medicine
DX: I47.10 Supraventricular tachycardia, unspecified (principal)

== ENCOUNTER → 2025-07-01 | Outpatient (CLI) | payer MEDICARE ==
[2025-07-01 16:06] LABS: CALCIUM LEVEL 9.6 MG/DL (8.3-10.6); CARBON DIOXIDE LEVEL 27.0 MMOL/L (20-31); CHLORIDE LEVEL 103.0 MMOL/L (98-107); CREATININE FOR GFR 0.91 MG/DL (0.55-1.30); GLOMERULAR FILTRATION RATE 64.6 (>39); MAGNESIUM LEVEL 1.5 MG/DL (1.8-2.4); POTASSIUM SERUM 3.4 MMOL/L (3.5-5.1); SODIUM LEVEL 137.0 MMOL/L (136-145)
== END ==
LOC: M LAB 14:39
PROVIDERS: ATTEND Family Medicine
DX: E83.42 Hypomagnesemia (principal)